=== PATIENT | female | born 2000 | race Caucasian/White ===

== ENCOUNTER 2019-10-11 10:39 | Emergency (ER) | payer BC, OTHER ==
[~2019-10-11] VITALS: Ht 165 cm; Wt 60.0 kg
[~2019-10-11 10:39] MED LIST: [UNRECOGNIZED DRUG - OTHER]
--- OUTSIDE RECORDS SUMMARY | 2019-10-11 10:44 | XMS REPORT ---
Author Author Michaela COOPER [facility] Address [address] [place] [address] Care Team Providers Care Planning Specialist Name Role Phone RON COOPER Unavailable PROBLEMS Type Condition ICD9-CM Code [id number] Code Onset Dates Condition S tatus SNOMED Code Problem Menometrorrhagia N92.1 Active 314 284289 Problem Slow transit constipation K59.01 Acti ve 83353719 Problem Abdominal pain, unspecified site 789.00 Active 51643729 Problem Acute upper respiratory infections of unspecified site 465.9 Active 65860786 Problem Intestinal infection due to other organism, NEC 008.8 Active [id number] ALLERGIES No Known Allergies ENCOUNTERS Encounter Location Date Diagnosis [facility] [address] [id number] [address] [place] [address] Aug, Friction injury to skin T14. 8XXA and Pressure injury of skin of both feet L89.899 [facility] [id number] [place] [id number] Aug, [facility] [address] [place] [address] Aug, Pressure injury of skin of b oth feet L89.899 and Friction injury to skin T14.8XXA [facility] [place] [address] [id number] [address] [place] [address] July, Encounter for Depo-Provera c ontraception Z30.42 [facility] [address] [id number] [address] [place] [address] May, Sore throat J02.9 and Viral upper respiratory tract infection J06.9 [facility] [place] [address] [id number] [address] [place] [address] 14 May, 2018 Encounter for initial prescr iption of contraceptives, unspecified contraceptive Z30.019 ; Contraception management Z30.9 ; Encounter for Depo- Provera contraception Z30.42 and Contraceptive education Z30.09 [facility] [address] [id number] [address] [place] [address] 12 May, 2018 Generalized abdominal pain R 10.84 and Slow transit constipation K59.01 [facility] [address] [address] Feb, Sore throat J02.9 ; Congesti on of nasal sinus R09.81 and Acute nasopharyngitis J00 [facility] [address] [address] Jan, Acute nasopharyngitis [address] [place] [address] [address] 16 May, 2017 control counseling Z30 .09 ; Menometrorrhagia N92.1 and Initiation of oral contraception Z30.011 [facility] [place] [address] [address] 07 Dec, 2016 Infectious otitis externa H6 0.399 [facility] [place] [address] [address] July, Acute upper respiratory infe ction J06.9 [facility] [place] [address] [address] July, [place] [address] [address] Jun, [place] [address] [address] Jun, [place] [address] [address] Mar, [place] [address] [address] Mar, [facility] [place] [address] [id number] [address] [place] [address] Jan, [facility] [place] [address] [id number] [address] [place] [address] Jan, [facility] [place] [address] [id number] [address] [place] [address] Jan, [facility] [place] [address] [id number] [address] [place] [phone] Jan, [facility] [place] [address] [id number] [address] [place] [phone] Apr, [facility] [place] [address] [id number] [address] [place] [phone] Apr, [facility] [place] [address] [facility] [id number] [address] [place] [phone] Feb, IMMUNIZATIONS No Known Immunizations SOCIAL HISTORY Never Assessed REASON FOR VISIT cough et congestion for the past week. second visit to the [facility] in 4 days. andrew nair PLAN OF CARE Activity Details Follow Up if not improving or with pcp for regular fu Reason: VITAL SIGNS Height 64 in 2018-06-01 Weight 114.2 lbs 2018-06-01 Temperature 98.6 degrees Fahrenheit 2018-06-01 Heart Rate 76 bpm 2018-06-01 Respiratory Rate 20 2018-06-01 BMI 19.60 kg/m2 2018-06-01 Blood pressure systolic 104 mmHg 2018-06-01 Blood pressure diastolic 62 mmHg 2018-06-01 MEDICATIONS Medication Instructions Dosage Frequency Start Date End Date Duration S tatus Depo-Provera 150 MG/ML Intramuscular [id number] 1 ml May, 90 days Active RESULTS Name Result Date Reference Range MONO TEST (IN HOUSE) 2018-06-01 RESULTS negative Control + Lot # [id number] Exp date 2019 STREP A (IN HOUSE) 2018-06-01 STREP A negative Control + Lot # [id number] Exp date 2018 09 31 PROCEDURES Procedure Date Ordered Result Body Site HETEROPHILE ANTIBODIES June 01, 2018 STREP A ASSAY W/OPTIC June 01, 2018 INSTRUCTIONS MEDICATIONS ADMINISTERED No Known Medications MEDICAL (GENERAL) HISTORY Type Description Date Surgical History bladder stretched when younger
--- OUTSIDE RECORDS SUMMARY | 2019-10-11 10:44 | XMS REPORT ---
Author Author Michaela JACK Organization [facility] [place] Address [address] [place] [address] Care Team Providers Care Oil Well Engineer Name Role Phone KAREEN JACK Unavailable PROBLEMS Type Condition ICD9-CM Code [id number] Code Onset Dates Condition S tatus SNOMED Code Problem Menometrorrhagia N92.1 Active 314 665101 Problem Slow transit constipation K59.01 Acti ve 45391742 Problem Abdominal pain, unspecified site 789.00 Active 77361831 Problem Acute upper respiratory infections of unspecified site 465.9 Active 66719748 Problem Intestinal infection due to other organism, NEC 008.8 Active 81441878 ALLERGIES No Information ENCOUNTERS Encounter Location Date Diagnosis [facility] [address] [id number] [address] [place] [address] Aug, Friction injury to skin T14. 8XXA and Pressure injury of skin of both feet L89.899 [facility] [address] [id number] [place] [id number] Aug, [facility] [address] [id number] [address] [place] [address] Aug, Pressure injury of skin of b oth feet L89.899 and Friction injury to skin T14.8XXA [facility] [place] [address] [place], [place] [id number] [address] [place] [phone] July, Encounter for Depo-Provera c ontraception Z30.42 [facility] [address] [id number] [address] [place] [address] 16 May, 2018 Sore throat J02.9 and Viral upper respiratory tract infection J06.9 [facility] [place] [address] [id number] [address] [place] [address] 14 May, 2018 Encounter for initial prescr iption of contraceptives, unspecified contraceptive Z30.019 ; Contraception management Z30.9 ; Encounter for Depo- Provera contraception Z30.42 and Contraceptive education Z30.09 [facility] [address] [address] 12 May, 2018 Generalized abdominal pain R 10.84 and Slow transit constipation K59.01 [facility] [address] [address] Feb, Sore throat J02.9 ; Congesti on of nasal sinus R09.81 and Acute nasopharyngitis J00 [facility] [address] [address] 10 Jan, 2018 Acute nasopharyngitis [address]00 [place] [address] [address] 16 May, 2017 control counseling Z30 .09 ; Menometrorrhagia N92.1 and Initiation of oral contraception Z30.011 [facility] [place] [address] [address] 07 Dec, 2016 Infectious otitis externa H6 0.399 [facility] [place] [address] [address] 06 Jul, 2016 Acute upper respiratory infe ction J06.9 [facility] [place] [address] [address] July, [place] [address] [address] Jun, [place] [address] [address] Jun, [place] [address] [address] Mar, [place] [address] [address] Mar, [facility] [place] [address] [id number] [address] [place] [phone] Jan, [facility] [place] [address] [id number] [address] [place] [phone] Jan, [facility] [place] [address] [id number] [address] [place] [phone] Jan, [facility] [place] [address] [id number] [address] [place] [phone] Jan, [facility] [place] [address] [id number] [address] [place] [phone] Apr, [facility] [place] [address] [id number] [address] [place] [phone] Apr, [facility] [place] [address] [facility] [id number] [address] [place] [phone] Feb, IMMUNIZATIONS No Known Immunizations SOCIAL HISTORY Never Assessed REASON FOR VISIT PLAN OF CARE VITAL SIGNS Height 64 in 2014-04-04 Weight 116 lbs 2014-04-04 Temperature 98.6 degrees Fahrenheit 2014-04-04 Heart Rate 72 bpm 2014-04-04 Respiratory Rate 20 2014-04-04 Blood pressure systolic 116 mmHg 2014-04-04 Blood pressure diastolic 78 mmHg 2014-04-04 MEDICATIONS No Known Medications RESULTS No Results PROCEDURES Procedure Date Ordered Result Body Site HETEROPHILE ANTIBODIES Apr 04, 2014 INSTRUCTIONS MEDICATIONS ADMINISTERED No Known Medications MEDICAL (GENERAL) HISTORY Type Description Date Surgical History bladder stretched when younger
--- OUTSIDE RECORDS SUMMARY | 2019-10-11 10:44 | XMS REPORT ---
Author Author Michaela CONWAY Organization [facility] [place] Address [address] [place] [address] Care Team Providers Care Auriculotherapist Name Role Phone GLADYS CONWAY Unavailable PROBLEMS Type Condition ICD9-CM Code SJJ26-AE Code Onset Dates Condition S tatus SNOMED Code Problem Intestinal infection due to other organism, NEC 008.8 Active 94879469 Problem Acute upper respiratory infections of unspecified site 465.9 Active 62054725 Problem Abdominal pain, unspecified site 789.00 Active 35369977 ALLERGIES No Known Allergies SOCIAL HISTORY Never Assessed PLAN OF CARE Activity Details Follow Up prn Reason: VITAL SIGNS Weight 116 lbs 2016-07-22 Temperature 97.9 degrees Fahrenheit 2016-07-22 Heart Rate 86 bpm 2016-07-22 Respiratory Rate 18 2016-07-22 Blood pressure systolic 112 mmHg 2016-07-22 Blood pressure diastolic 76 mmHg 2016-07-22 MEDICATIONS Medication Instructions Dosage Frequency Start Date End Date Duration S liz Azithromycin 250 MG Orally Once a day 2 tablets on the fi rst day, then 1 tablet daily for 4 days 24h July, July, 5 day(s) Active RESULTS No Results PROCEDURES No Known procedures IMMUNIZATIONS No Known Immunizations
--- OUTSIDE RECORDS SUMMARY | 2019-10-11 10:44 | XMS REPORT ---
Author Author Michaela FARRIS [facility] Organization [facility] Address [address] [place] [address] Care Team Providers Care Fashion Designer Name Role Phone LIBORIO ROMEROMICHI Unavailable PROBLEMS Type Condition ICD9-CM Code [id number] Code Onset Dates Condition S tatus SNOMED Code Problem Menometrorrhagia N92.1 Active 314 486308 Problem Slow transit constipation K59.01 Acti ve 05755111 Problem Abdominal pain, unspecified site 789.00 Active 70238178 Problem Acute upper respiratory infections of unspecified site 465.9 Active 73134461 Problem Intestinal infection due to other organism, NEC 008.8 Active 26450750 ALLERGIES No Information ENCOUNTERS Encounter Location Date Diagnosis [facility] [address] [id number] [address] [place] [address] Apr, Influenza-like illness R69 [facility] [address] [id number] [address] [place] [address] Apr, Influenza-like illness R69 [facility] [address] [place] [id number] [address] [place] [address] Aug, Friction injury to skin T14. 8XXA and Pressure injury of skin of both feet L89.899 [facility] [address] [facility] [place] [id number] Aug, [facility] [address] [id number] [address] [place] [address] Aug, Pressure injury of skin of b oth feet L89.899 and Friction injury to skin T14.8XXA [facility] [address] [facility] [place] [address] July, Encounter for Depo-Provera contraception Z30.42 [facility] [address] [id number] [address] [place] [address] 16 May, 2018 Sore throat J02.9 and Viral upper respiratory tract infection J06.9 [facility] [address] [id number] [place] [address] 14 May, 2018 Encounter for initial prescription of co ntraceptives, unspecified contraceptive Z30.019 ; Contraception management Z30.9 ; Encounter for Depo- Provera contraception Z30.42 and Contraceptive education Z30.09 [facility] [place] [address] [address] 12 May, 2018 Generalized abdominal pain R 10.84 and Slow transit constipation K59.01 [facility] [address] [address] 28 Feb, 2018 Sore throat J02.9 ; Congesti on of nasal sinus R09.81 and Acute nasopharyngitis J00 [facility] [place] [address] [address] 10 Jan, 2018 Acute nasopharyngitis J00 [place] [address] [address] 16 May, 2017 control counseling Z30.09 ; Menome trorrhagia N92.1 and Initiation of oral contraception Z30.011 [facility] [address] [address] 07 Dec, 2016 Infectious otitis externa H6 0.399 [facility] [address] [address] July, Acute upper respiratory infe ction J06.9 [facility] [address] [address] 05 Jul, 2016 [facility] [address] [place] [id number] [place] [address] 14 Jun, 2014 [place] [address] [address] Jun, [facility] [address] [facility] [place] [address] Mar, [facility] [address] [id number] [place] [address] Mar, [facility] [address] [facility] [place] [address] Jan, [facility] [id number] [place] [address] Jan, [facility] [address] [id number] [place] [address] Jan, [facility] [address] [id number] [place] [address] Jan, [facility] [address] [id number] [place] [address] Apr, [facility] [address] [id number] [place] [address] Apr, [facility] [address] [id number] [place] [address] Feb, IMMUNIZATIONS No Known Immunizations SOCIAL HISTORY Never Assessed REASON FOR VISIT PLAN OF CARE VITAL SIGNS Weight 120.7 lbs 2013-05-08 Temperature 98.1 degrees Fahrenheit 2013-05-08 Heart Rate 88 bpm 2013-05-08 Respiratory Rate 16 2013-05-08 Blood pressure systolic 118 mmHg 2013-05-08 Blood pressure diastolic 60 mmHg 2013-05-08 MEDICATIONS No Known Medications RESULTS No Results PROCEDURES No Known procedures INSTRUCTIONS MEDICATIONS ADMINISTERED No Known Medications MEDICAL (GENERAL) HISTORY Type Description Date Surgical History bladder stretched when younger
--- OUTSIDE RECORDS SUMMARY | 2019-10-11 10:44 | XMS REPORT ---
Author Author Michaela Torres Doctor Organization [facility] Address Unknown Phone Unavailable Care Team Providers Care Corporate Tax Manager Name Role Phone Migration, Doctor Unavailable Unavailable PROBLEMS Type Condition ICD9-CM Code [id number] Code Onset Dates Condition S tatus SNOMED Code Problem Menometrorrhagia N92.1 Active 314 714608 Problem Slow transit constipation K59.01 Acti ve 75811026 Problem Abdominal pain, unspecified site 789.00 Active 68198674 Problem Acute upper respiratory infections of unspecified site 465.9 Active 28552898 Problem Intestinal infection due to other organism, NEC 008.8 Active 73924315 ALLERGIES No Information ENCOUNTERS Encounter Location Date Diagnosis [facility] [address] [place] [address] [id number] [address] [place] [address] 16 May, 2018 Sore throat J02.9 and Viral upper respiratory tract infection J06.9 [facility] [place] [address] [place] [address] [id number] [address] [place] [address] 14 May, 2018 Encounter for initial prescr iption of contraceptives, unspecified contraceptive Z30.019 ; Contraception management Z30.9 ; Encounter for Depo- Provera contraception Z30.42 and Contraceptive education Z30.09 [facility] [address] [place] [address] 12 May, 2018 Generalized abdominal pain R 10.84 and Slow transit constipation K59.01 [facility] [address] [place] [id number] [address] [place] [address] Feb, Sore throat J02.9 ; Congesti on of nasal sinus R09.81 and Acute nasopharyngitis J00 [facility] [address] [place] [id number] [address] [place] [address] 10 Jan, 2018 Acute nasopharyngitis J00 [facility] [place] [address] [place] [id number] [address] [place] [address] 16 May, 2017 control counseling Z30 .09 ; Menometrorrhagia N92.1 and Initiation of oral contraception Z30.011 [facility] [address] [id number] [address] [place] [address] 07 Dec, 2016 Infectious otitis externa H6 0.399 [facility] [address] [facility] [id number] [address] [place] [address] 06 Jul, 2016 Acute upper respiratory infe ction J06.9 [facility] [address] [id number] [address] [place] [address] July, [facility] [place] [address] [id number] [address] [place] [address] 14 Jun, 2014 [facility] [place] [address] [id number] [address] [place] [address] Jun, [facility] [place] [address] [facility] [id number] [address] [place] [address] Mar, [facility] [place] [address] [id number] [address] [place] [address] Mar, [facility] [place] [address] [facility] [id number] [address] [place] [address] Jan, [facility] [place] [address] [facility] [id number] [address] [place] [address] Jan, [facility] [place] [address] [id number] [address] [place] [address] Jan, [facility] [place] [address] [id number] [address] [place] [address] Jan, [facility] [place] [address] [facility] [id number] [address] [place] [address] Apr, [facility] [place] [address] [id number] [address] [place] [address] Apr, [facility] [place] [address] [id number] [address] [place] [address] Feb, IMMUNIZATIONS No Known Immunizations SOCIAL HISTORY Never Assessed REASON FOR VISIT [facility] PLAN OF CARE VITAL SIGNS MEDICATIONS No Known Medications RESULTS No Results PROCEDURES No Known procedures INSTRUCTIONS MEDICATIONS ADMINISTERED No Known Medications MEDICAL (GENERAL) HISTORY Type Description Date Surgical History bladder stretched when younger
--- OUTSIDE RECORDS SUMMARY | 2019-10-11 10:44 | XMS REPORT ---
Author Author Michaela Regalado [facility] Address [address] [place] [address] Care Team Providers Care Wire Photo Operator Name Role Phone rajivCHRISDASH GUSTAVO Unavailable PROBLEMS Type Condition ICD9-CM Code BID25-FQ Code Onset Dates Condition S tatus SNOMED Code Problem Menometrorrhagia N92.1 Active 314 517930 Problem Intestinal infection due to other organism, NEC 008.8 Active 75796874 Problem Acute upper respiratory infections of unspecified site 465.9 Active 34980884 Problem Abdominal pain, unspecified site 789.00 Active 93083749 ALLERGIES No Known Allergies ENCOUNTERS Encounter Location Date Diagnosis [facility] [address] [place] [phone] May, control counseling Z30 .09 ; Menometrorrhagia N92.1 and Initiation of oral contraception Z30.011 [facility] [address] [place] [address] Dec, Infectious otitis externa H6 0.399 [facility] [address] [facility] [id number] [address] [place] [phone] July, Acute upper respiratory infe ction J06.9 [facility] [address] [facility] [id number] [address] [place] [phone] July, [facility] [address] [place] [id number] [address] [place] [phone] Jun, [facility] [address] [place] [id number] [address] [place] [phone] Jun, [facility] [address] [facility] [id number] [address] [place] [phone] Mar, [place] [address] [id number] [address] [place] [phone] Mar, [facility] [address] [id number] [address] [place] [phone] Jan, [facility] [address] [id number] [address] [place] [phone] Jan, [facility] [address] [id number] [address] [place] [phone] Jan, [facility] [address] [id number] [address] [place] [phone] Jan, [facility] [address] [id number] [address] [place] [phone] Apr, [facility] [address] [id number] [address] [place] [phone] Apr, [facility] [address] [id number] [address] [place] [phone] Feb, IMMUNIZATIONS No Known Immunizations SOCIAL HISTORY Never Assessed REASON FOR VISIT Right ear pain x3-4 days [facility] PCP None PLAN OF CARE Activity Details Follow Up prn Reason: VITAL SIGNS Weight 115.8 lbs 2016-12-23 Temperature 98.3 degrees Fahrenheit 2016-12-23 Heart Rate 60 bpm 2016-12-23 Respiratory Rate 20 2016-12-23 Blood pressure systolic 120 mmHg 2016-12-23 Blood pressure diastolic 68 mmHg 2016-12-23 MEDICATIONS Medication Instructions Dosage Frequency Start Date End Date Duration S tatus Cortisporin 3.5-85077-5 Otic Three times a day 4 drops into affecte d ear 8h Dec, 7 days Active RESULTS No Results PROCEDURES No Known procedures INSTRUCTIONS MEDICATIONS ADMINISTERED No Known Medications MEDICAL (GENERAL) HISTORY Type Description Date Surgical History bladder stretched when younger
--- OUTSIDE RECORDS SUMMARY | 2019-10-11 10:44 | XMS REPORT ---
Author Author Michaela AGRAWAL Organization [facility] Address [address] [place] [address] Care Team Providers Care Bending Shed Worker Name Role Phone CHIRAG AGRAWAL Unavailable PROBLEMS Type Condition ICD9-CM Code ZGE15-XE Code Onset Dates Condition S tatus SNOMED Code Problem Menometrorrhagia N92.1 Active 314 285352 Problem Slow transit constipation K59.01 Acti ve 84178952 Problem Abdominal pain, unspecified site 789.00 Active 67844816 Problem Acute upper respiratory infections of unspecified site 465.9 Active 26576306 Problem Intestinal infection due to other organism, NEC 008.8 Active 81198770 ALLERGIES No Information ENCOUNTERS Encounter Location Date Diagnosis [facility] [address] [place] [id number] [address] [place] [phone] Aug, Friction injury to skin T14. 8XXA and Pressure injury of skin of both feet L89.899 [facility] [id number] [place] [id number] Aug, [facility] WALK IN [facility] [address] [id number] [address] [place] [phone] Aug, Pressure injury of skin of b oth feet L89.899 and Friction injury to skin T14.8XXA [facility] [address] [place] [id number] [address] [place] [phone] July, Encounter for Depo-Provera c ontraception Z30.42 [facility] [address] [place] [id number] [address] [place] [phone] 16 May, 2018 Sore throat J02.9 and Viral upper respiratory tract infection J06.9 [facility] [address] [place] [id number] [address] [place] [phone] May, Encounter for initial prescr iption of contraceptives, unspecified contraceptive Z30.019 ; Contraception management Z30.9 ; Encounter for Depo- Provera contraception Z30.42 and Contraceptive education Z30.09 [facility] [address] [address] 12 May, 2018 Generalized abdominal pain R 10.84 and Slow transit constipation K59.01 [facility] IN [facility]ARE [address] [address] 28 Feb, 2018 Sore throat J02.9 ; Congesti on of nasal sinus R09.81 and Acute nasopharyngitis J00 [facility] WALK IN CARE [facility] [address] [address] 10 Jan, 2018 Acute nasopharyngitis J00 [place] [address] [address] 16 May, 2017 control counseling Z30 .09 ; Menometrorrhagia N92.1 and Initiation of oral contraception Z30.011 [facility] [address] [address] 07 Dec, 2016 Infectious otitis externa H6 0.399 [facility] W[facility] IN [facility]ARE [facility] N [address] [address] 06 Jul, 2016 Acute upper respiratory infe ction J06.9 [facility] WALK IN [place] [address] [address] July, [facility] [address] [address] Jun, [place] [address] [address] Jun, [facility] [address] [address] Mar, [facility] [address] [address] Mar, [facility] [address] [id number] [address] [place] [address] Jan, [facility] [address] [id number] [address] [place] [address] Jan, [facility] [address] [id number] [address] [place] [phone] Jan, [facility] [address] [id number] [address] [place] [phone] Jan, [facility] [address] [id number] [address] [place] [address] Apr, [facility] [address] [id number] [address] [place] [phone] Apr, [facility] [address] [id number] [address] [place] [phone] Feb, IMMUNIZATIONS No Known Immunizations SOCIAL HISTORY Never Assessed REASON FOR VISIT PLAN OF CARE VITAL SIGNS Height 64 in 2014-01-27 Weight 115.12 lbs 2014-01-27 Temperature 98.4 degrees Fahrenheit 2014-01-27 Heart Rate 77 bpm 2014-01-27 Respiratory Rate 18 2014-01-27 Blood pressure systolic 132 mmHg 2014-01-27 Blood pressure diastolic 78 mmHg 2014-01-27 MEDICATIONS No Known Medications RESULTS No Results PROCEDURES Procedure Date Ordered Result Body Site URINE CULTURE/COLONY COUNT Jan 27, 2014 HETEROPHILE ANTIBODIES Jan 27, 2014 URINE TEST Jan 27, 2014 URINALYSIS, AUTO, W/O SCOPE Jan 27, 2014 INSTRUCTIONS MEDICATIONS ADMINISTERED No Known Medications MEDICAL (GENERAL) HISTORY Type Description Date Surgical History bladder stretched when younger
--- OUTSIDE RECORDS SUMMARY | 2019-10-11 10:44 | XMS REPORT | Continuity of Care Document ---
Author Organization Unknown Address Unknown Phone Unavailable Allergies Active Description Code Type Severity Reaction Onset Reported/Identified Relationship to Patient Clinical Status Yes No Known Drug Allergies [id number] Drug Allergy Unknown N/A 08/14/2008 Medications There is no data. Problems Date Dx Coded Attending Type Code Diagnosis Diagnosed By 12/10/2008 MICHI BRADLEY APRN N 477.9 ALLERGIC RHINITIS CAUSE UNSPECIFIED 12/10/2008 MICHI BRADLEY APRN N 786.2 COUGH 12/10/2008 TANJA VELÁZQUEZ CHIRAG 477. 9 ALLERGIC RHINITIS CAUSE UNSPECIFIED 12/10/2008 TANJA VELÁZQUEZ, CHIRAG 786. 2 COUGH 12/10/2008 GARRET JACK APRNA S 477.9 ALLERGIC RHINITIS CAUSE UNSPECIFIED 12/10/2008 MARCIE LOBO KAREEN S 786.2 COUGH 03/10/2011 MICHI BRADLEY APRN N 466.0 BRONCHITIS, ACUTE 03/10/2011 MICHI BRADLEY APRN N 780.79 MALAISE AND FATIGUE 03/10/2011 TANJA VELÁZQUEZ, CHIRAG 466. 0 BRONCHITIS, ACUTE 03/10/2011 TANJA VELÁZQUEZ, CHIRAG 780. 79 MALAISE AND FATIGUE 03/10/2011 JOSSE JACK APRNNDA S 466.0 BRONCHITIS, ACUTE 03/10/2011 MARCIE LOBO KAREEN S 780.79 MALAISE AND FATIGUE 12/12/2013 JEISON FAITH Ot 789.00 ABDOMINAL PAIN, UNSPECIFIED SITE 01/27/2014 TANJA VELÁZQUEZ, CHIRAG 008. 8 GASTROENTERITIS, VIRAL 01/27/2014 TANJA VELÁZQUEZ, CHIRAG 789. 00 ABDOMINAL PAIN UNSPECIFIED SITE 01/27/2014 KAREEN JACK APRN S 008.8 GASTROENTERITIS, VIRAL 01/27/2014 GARRET JACK APRNA S 789.00 ABDOMINAL PAIN UNSPECIFIED SITE 04/04/2014 KAREEN JACK APRN 465.9 UPPER RESPIRATORY INFECTION Procedures Code Description [place] [address] MONO TEST (IN-HOUSE) 01/27/2014 95171 UA W / CULTURE IF INDICATED 01/27/2014 38897 PREG MICHI TEST, URINE (IN- HOUSE) 01/27/2014 03566 CULT URE URINE 01/29/2014 10980 MONO TEST (IN-HOUSE) 04/04/2014 Results There is no data. Encounters ACCT No. Visit Date/Time Discharge Status Pt. Type Provider Facility Loc./Unit Complaint [id number] 10/10/2019 07:30:00 ACT Outpatient SUSAN MONTANA APRN [facility] [id number] 07/30/2015 15:44:02 ACT Unknown [id number] 04/04/2014 09:58:00 04/04/2014 23:59: 59 CLS Outpatient KAREEN JACK APRN [id number] 01/27/2014 16:23:00 01/27/2014 23:59: 59 CLS Outpatient TANJA VELÁZQUEZ, CHIRAG [id number] 05/08/2013 13:53:00 05/08/2013 23:59: 59 CLS Outpatient MICHI BRADLYE APRN N [id number] 12/12/2013 17:49:00 014 20:52:00 DIS Emergency JEISON FAITH [facility] ER UPPER LEFT SIDE PAIN [id number] 07/25/2012 18:00:00 013 23:59:59 CLS Outpatient
--- OUTSIDE RECORDS SUMMARY | 2019-10-11 10:44 | XMS REPORT ---
Author Author Michaela Torres Doctor Organization [facility] Address Unknown Phone Unavailable Care Team Providers Care Engine Monitor Name Role Phone Migration, Doctor Unavailable Unavailable PROBLEMS Type Condition ICD9-CM Code [id number] Code Onset Dates Condition S tatus SNOMED Code Problem Menometrorrhagia N92.1 Active 314 898725 Problem Slow transit constipation K59.01 Acti ve 76455675 Problem Abdominal pain, unspecified site 789.00 Active 95803963 Problem Acute upper respiratory infections of unspecified site 465.9 Active 87641088 Problem Intestinal infection due to other organism, NEC 008.8 Active 84480422 ALLERGIES No Information ENCOUNTERS Encounter Location Date Diagnosis [facility] IN [facility] [address] [place] [id number] [address] [place] [phone] 16 May, 2018 Sore throat J02.9 and Viral upper respiratory tract infection J06.9 [facility] [address] [place] [address] [id number] [address] [place] [phone] 14 May, 2018 Encounter for initial prescr iption of contraceptives, unspecified contraceptive Z30.019 ; Contraception management Z30.9 ; Encounter for Depo- Provera contraception Z30.42 and Contraceptive education Z30.09 [facility] [address] [place] [address] 12 May, 2018 Generalized abdominal pain R 10.84 and Slow transit constipation K59.01 [facility] [address] [place] [id number] [address] [place] [phone] Feb, Sore throat J02.9 ; Congesti on of nasal sinus R09.81 and Acute nasopharyngitis J00 [facility] [address] [place] [address] [id number] [address] [place] [phone] 10 Jan, 2018 Acute nasopharyngitis J00 [facility] [address] [place] [address] [id number] [address] [place] [phone] 16 May, 2017 control counseling Z30 .09 ; Menometrorrhagia N92.1 and Initiation of oral contraception Z30.011 [facility] [address] [id number] [address] [place] [phone] 07 Dec, 2016 Infectious otitis externa H6 0.399 [facility] [address] [facility] [id number] [address] [place] [phone] 06 Jul, 2016 Acute upper respiratory infe ction J06.9 [facility] [address] [id number] [address] [place] [phone] July, [facility] [address] [id number] [address] [place] [phone] 14 Jun, 2014 [facility] [address] [id number] [address] [place] [phone] Jun, [facility] [address] [facility] [id number] [address] [place] [phone] Mar, [facility] [address] [id number] [address] [place] [phone] Mar, [facility] [address] [facility] [id number] [address] [place] [phone] Jan, [facility] [address] [facility] [id number] [address] [place] [phone] Jan, [facility] [address] [id number] [address] [place] [phone] Jan, [facility] [address] [id number] [address] [place] [phone] Jan, [facility] [address] [facility] [id number] [address] [place] [phone] Apr, [facility] [address] [id number] [address] [place] [phone] Apr, [facility] [address] [id number] [address] [place] [phone] Feb, IMMUNIZATIONS No Known Immunizations SOCIAL HISTORY Never Assessed REASON FOR VISIT EMR-[facility] PLAN OF CARE VITAL SIGNS MEDICATIONS No Known Medications RESULTS No Results PROCEDURES No Known procedures INSTRUCTIONS MEDICATIONS ADMINISTERED No Known Medications MEDICAL (GENERAL) HISTORY Type Description Date Surgical History bladder stretched when younger
--- OUTSIDE RECORDS SUMMARY | 2019-10-11 10:44 | XMS REPORT ---
Author Author Michaela ORLANDO Organization [facility] Address [address] [place] [address] Care Team Providers Care Area Sales Manager Name Role Phone PAT ORLANDO Unavailable PROBLEMS Type Condition ICD9-CM Code RTF13-GL Code Onset Dates Condition S tatus SNOMED Code Problem Menometrorrhagia N92.1 Active 314 076425 Problem Slow transit constipation K59.01 Acti ve 34707400 Problem Abdominal pain, unspecified site 789.00 Active 33896955 Problem Acute upper respiratory infections of unspecified site 465.9 Active 59936062 Problem Intestinal infection due to other organism, NEC 008.8 Active 71037146 ALLERGIES No Known Allergies ENCOUNTERS Encounter Location Date Diagnosis [facility] TO WALK IN [facility]ARE [address] [place] [address] [id number] [address] [place] [phone] Aug, Friction injury to skin T14. 8XXA and Pressure injury of skin of both feet L89.899 [facility] [address] [id number] [place] [id number] Aug, [facility] WALK IN [facility] [address] [place] [id number] [address] [place] [phone] Aug, Pressure injury of skin of b oth feet L89.899 and Friction injury to skin T14.8XXA [facility] [address] [place] [id number] [address] [place] [phone] July, Encounter for Depo-Provera c ontraception Z30.42 [facility] WALK IN [facility]ARE [address] [place] [id number] [address] [place] [phone] 16 May, 2018 Sore throat J02.9 and Viral upper respiratory tract infection J06.9 [facility] [address] [place] [id number] [address] [place] [address] May, Encounter for initial prescr iption of contraceptives, unspecified contraceptive Z30.019 ; Contraception management Z30.9 ; Encounter for Depo- Provera contraception Z30.42 and Contraceptive education Z30.09 [facility] WALK IN CARE [address] [address] 12 May, 2018 Generalized abdominal pain R 10.84 and Slow transit constipation K59.01 [facility] IN [facility]ARE [address] [address] 28 Feb, 2018 Sore throat J02.9 ; Congesti on of nasal sinus R09.81 and Acute nasopharyngitis J00 [facility] WALK IN [facility]ARE [facility] N [address] [address] 10 Jan, 2018 Acute nasopharyngitis J00 [place] [address] [address] 16 May, 2017 control counseling Z30 .09 ; Menometrorrhagia N92.1 and Initiation of oral contraception Z30.011 [facility] [address] [address] 07 Dec, 2016 Infectious otitis externa H6 0.399 [facility] WALK IN [facility]ARE [facility] N [address] [address] 06 Jul, 2016 Acute upper respiratory infe ction J06.9 [facility] WALK IN [place] [address] [phone] July, [facility] [address] [address] Jun, [place] [address] [address] Jun, [facility] [address] [address] Mar, [facility] [address] [address] Mar, [facility] [address] [id number] [address] [place] [phone] Jan, [facility] [address] [id number] [address] [place] [phone] Jan, [facility] [address] [id number] [address] [place] [phone] Jan, [facility] [address] [facility] [id number] [address] [place] [phone] Jan, [facility] [address] [id number] [address] [place] [phone] Apr, [facility] [address] [facility] [id number] [address] [place] [phone] Apr, [facility] [address] [facility] [id number] [address] [place] [phone] Feb, IMMUNIZATIONS No Known Immunizations SOCIAL HISTORY Never Assessed REASON FOR VISIT for the past 2 weeks...pt has had N/D off et on. also reports cough et fatigue. [email or web address] PLAN OF CARE Activity Details Follow Up Follow up prn Reason: VITAL SIGNS Height 64 in 2018-05-28 Weight 115.8 lbs 2018-05-28 Temperature 97.8 degrees Fahrenheit 2018-05-28 Heart Rate 82 bpm 2018-05-28 Respiratory Rate 20 2018-05-28 BMI 19.87 kg/m2 2018-05-28 Blood pressure systolic 120 mmHg 2018-05-28 Blood pressure diastolic 70 mmHg 2018-05-28 MEDICATIONS Medication Instructions Dosage Frequency Start Date End Date Duration S tatus Polyethylene Glycol 3350 - Orally Once a day 1 capfull mix ed with 8 ounces of water or juice 24h May, 30 day(s) Active RESULTS Name Result Date Reference Range TEST, URINE (IN HOUSE) RESULTS negative Lot # [id number] Control + Exp date 2019-09-16 Xray : Abdomen 2v (Upright and KUB) - IN HOUSE 2 PROCEDURES Procedure Date Ordered Result Body Site X-RAY EXAM ABDOMEN 2 VIEWS May 28, 2018 URINE TEST May 28, 2018 INSTRUCTIONS MEDICATIONS ADMINISTERED No Known Medications MEDICAL (GENERAL) HISTORY Type Description Date Surgical History bladder stretched when younger
--- OUTSIDE RECORDS SUMMARY | 2019-10-11 10:44 | XMS REPORT ---
Author Author Michaela WILDER Organization [facility] Address [address] [place] [address] Care Team Providers Care Vice President Residential Solar Sales Name Role Phone WILDERYAEL Unavailable PROBLEMS Type Condition ICD9-CM Code [id number] Code Onset Dates Condition S tatus SNOMED Code Problem Menometrorrhagia N92.1 Active 314 580067 Problem Intestinal infection due to other organism, NEC 008.8 Active 75175855 Problem Acute upper respiratory infections of unspecified site 465.9 Active 69870913 Problem Abdominal pain, unspecified site 789.00 Active 96959195 ALLERGIES No Known Allergies ENCOUNTERS Encounter Location Date Diagnosis [facility] [address] [place] [id number] [address] [place] [phone] 10 Jan, 2018 Acute nasopharyngitis J00 [facility] [address] [address] 16 May, 2017 control counseling Z30 .09 ; Menometrorrhagia N92.1 and Initiation of oral contraception Z30.011 [facility] [address] [place] [address] [id number] [address] [place] [phone] Dec, Infectious otitis externa H6 0.399 [facility] [address] [place] [id number] [address] [place] [phone] July, Acute upper respiratory infe ction J06.9 [facility] [address] [phone] July, [facility] [address] [place] [id number] [address] [place] [phone] 14 Jun, 2014 [facility] [address] [address] Jun, [facility] [address] [id number] [address] [place] [phone] Mar, [facility] [address] [id number] [address] [place] [phone] Mar, [facility] [address] [id number] [address] [place] [phone] Jan, [facility] [address] [id number] [address] [place] [phone] Jan, [facility] [address] [id number] [address] [place] [phone] Jan, [facility] [address] [id number] [address] [place] [phone] Jan, [facility] [address] [id number] [address] [place] [phone] Apr, [facility] [address] [id number] [address] [place] [phone] Apr, [facility] [address] [id number] [address] [place] [phone] Feb, IMMUNIZATIONS No Known Immunizations SOCIAL HISTORY Never Assessed REASON FOR VISIT fever, cough, congestion for the last 4 days. bulmaro, didnt actually take te mp at home...just thought she had one PLAN OF CARE Activity Details Follow Up prn Reason: VITAL SIGNS Height 64 in 2018-01-26 Weight 113.8 lbs 2018-01-26 Temperature 97.6 degrees Fahrenheit 2018-01-26 Heart Rate 80 bpm 2018-01-26 Respiratory Rate 20 2018-01-26 BMI 19.53 kg/m2 2018-01-26 Blood pressure systolic 104 mmHg 2018-01-26 Blood pressure diastolic 68 mmHg 2018-01-26 MEDICATIONS Medication Instructions Dosage Frequency Start Date End Date Duration S liz Apri 0.15-30 MG-MCG Orally Once a day 1 tablet 24h May, Active RESULTS No Results PROCEDURES No Known procedures INSTRUCTIONS MEDICATIONS ADMINISTERED No Known Medications MEDICAL (GENERAL) HISTORY Type Description Date Surgical History bladder stretched when younger
--- OUTSIDE RECORDS SUMMARY | 2019-10-11 10:44 | XMS REPORT ---
Author Author Michaela Torres Doctor Organization [facility] Address Unknown Phone Unavailable Care Team Providers Care Data Coordinator Name Role Phone Migration, Doctor Unavailable Unavailable PROBLEMS Type Condition ICD9-CM Code PPU88-AO Code Onset Dates Condition S tatus SNOMED Code Problem Menometrorrhagia N92.1 Active 314 328093 Problem Slow transit constipation K59.01 Acti ve 52537585 Problem Abdominal pain, unspecified site 789.00 Active 32378995 Problem Acute upper respiratory infections of unspecified site 465.9 Active 38104447 Problem Intestinal infection due to other organism, NEC 008.8 Active [id number] ALLERGIES No Information ENCOUNTERS Encounter Location Date Diagnosis [facility] [id number] [address] [place] [phone] 16 May, 2018 Sore throat J02.9 and Viral upper respiratory tract infection J06.9 [facility] [address] [id number] [address] [place] [phone] 14 May, 2018 Encounter for initial prescr iption of contraceptives, unspecified contraceptive Z30.019 ; Contraception management Z30.9 ; Encounter for Depo- Provera contraception Z30.42 and Contraceptive education Z30.[address] [facility] [id number] [place] [phone] 12 May, 2018 Generalized abdominal pain R 10.84 and Slow transit constipation K59.01 [facility] [address] [id number] [address] [place] [phone] Feb, Sore throat J02.9 ; Congesti on of nasal sinus R09.81 and Acute nasopharyngitis J00 [facility] [address] [id number] [address] [place] [phone] 10 Jan, [address] [facility] [address] [id number] [address] [place] [phone] 16 May, 2017 control counseling Z30 .09 ; Menometrorrhagia N92.1 and Initiation of oral contraception Z30.011 [facility] [address] [id number] [address] [place] [phone] 07 Dec, 2016 Infectious otitis externa H6 0.399 [facility] [address] [facility] [id number] [address] [place] [phone] 06 Jul, 2016 Acute upper respiratory infe ction J06.9 [facility] [address] [id number] [address] [place] [phone] July, [facility] [address] [id number] [address] [place] [phone] [address], [address] [facility] [address] [id number] [address] [place] [phone] Jun, [facility] [address] [facility] [id number] [address] [place] [phone] Mar, [facility] [address] [id number] [address] [place] [phone] Mar, [facility] [address] [facility] [id number] [address] [place] [phone] Jan, [facility] [address] [facility] [id number] [address] [place] [phone] Jan, [facility] [address] [id number] [address] [place] [phone] Jan, [facility] [address] [id number] [address] [place] [phone] Jan, [facility] [address] [facility] [id number] [address] [place] [phone] Apr, [facility] [address] [id number] [address] [place] [phone] Apr, [facility] [address] [id number] [address] [place] [phone] Feb, IMMUNIZATIONS No Known Immunizations SOCIAL HISTORY Never Assessed REASON FOR [place]ISIT [place] [place] VITAL SIGNS MEDICATIONS Medication Instructions Dosage Frequency Start Date End Date Duration S tatus Zantac 150 mg 1 tablet by Oral route 1 time per day fo r heartburn Jan, Active Flonase 50 mcg/actuation 1 sprays by Trever al route 2 times per day for 7 days in each nostril Apr, Active Zithromax Z-Chago 250 mg 2 tablet by Oral route 1 time per day for 1 days then take 1 tab daily on days 2-5 Apr, Active RESULTS No Results PROCEDURES No Known procedures INSTRUCTIONS MEDICATIONS ADMINISTERED No Known Medications MEDICAL (GENERAL) HISTORY Type Description Date Surgical History bladder stretched when younger
--- NOTE | 2019-10-11 11:24 | NUR ---
Pt to triage room at 1124 and sent back to waiting room.
--- NOTE | 2019-10-11 11:55 | ED General ---
General Stated Complaint: RASH ALL OVER Source of Information: Patient Exam Limitations: No Limitations History of Present Illness Date Seen by Provider: Oct 11, 2019 Time Seen by Provider: 11:53 Initial Comments To ER with rash all over. This is itching and burning. She awakened yesterday morning with a spider bite to the anterior neck. She has some lymphangitis associated with this. She went to urgent care and got put on doxycycline which she has had before without difficulty and a shot of steroids. She awakened this morning with diffuse itching rash. Timing/Duration: 1-2 Days Severity: Moderate Associated Systoms: Denies Symptoms Allergies and Home Medications Allergies Coded Allergies: No Known Drug Allergies (Verified , 08/14/08) Home Medications [Albuteral Tx] , ONCE, (Reported) Patient Home Medication List Home Medication List Reviewed: Yes Review of Systems Review of Systems Constitutional: see HPI EENTM: see HPI Respiratory: no symptoms reported Cardiovascular: no symptoms reported Genitourinary: no symptoms reported Musculoskeletal: no symptoms reported Skin: see HPI, rash Psychiatric/Neurological: No Symptoms Reported Past Ejryutp-Qfckjq-Fsaitu Hx Patient Social History Recent Foreign Travel: No Contact w/Someone Who Travel: No Past Medical History Asthma Physical Exam Vital Signs Vital Signs - First Documented 10/11/19 11:24 Temp 37.0 Pulse 71 Resp 20 B/P (MAP) 123/68 (86) Pulse Ox 100 O2 Delivery Room Air Capillary Refill : Height, Weight, BMI Height: 5'2" Weight: 116lbs. oz. 52.964262jp; BMI Method:Stated General Appearance: No Apparent Distress, WD/WN Eyes: Bilateral Eye Normal Inspection, Bilateral Eye PERRL, Bilateral Eye EOMI HEENT: PERRL/EOMI, TMs Normal, Normal ENT Inspection, Pharynx Normal, Other (no intraoral lesions) Respiratory: No Accessory Muscle Use, No Respiratory Distress Cardiovascular: Regular Rate, Rhythm, Normal Peripheral Pulses Gastrointestinal: Normal Bowel Sounds, Non Tender, Soft Extremity: Normal Capillary Refill, Normal Inspection Neurologic/Psychiatric: Alert, Oriented x3 Skin: Normal Color, Warm/Dry, Rash (diffuse morbilliform rash) Progress/Results/Core Measures Suspected Sepsis SIRS Temperature: Pulse: Respiratory Rate: Laboratory Tests 10/11/19 12:19: White Blood Count 7.1 Blood Pressure / Mean: Laboratory Tests 7/25/20 12:19: Creatinine 0.82, Platelet Count 196, Total Bilirubin 0.7 Results/Orders Lab Results Laboratory Tests Test 10/11/19 12:19 Range/Units White Blood Count 7.1 4.3-11.0 10^3/uL Red Blood Count 5.40 4.35-5.85 10^6/uL Hemoglobin 14.7 11.5-16.0 G/DL Hematocrit 43 35-52 % Mean Corpuscular Volume 80 80-99 FL Mean Corpuscular Hemoglobin 27 25-34 PG Mean Corpuscular Hemoglobin Concent 34 32-36 G/DL Red Cell Distribution Width 14.6 H 10.0-14.5 % Platelet Count 196 130-400 10^3/uL Mean Platelet Volume 11.8 H 7.4-10.4 FL Neutrophils (%) (Auto) 69 42-75 % Lymphocytes (%) (Auto) 18 12-44 % Monocytes (%) (Auto) 9 0-12 % Eosinophils (%) (Auto) 4 0-10 % Basophils (%) (Auto) 0 0-10 % Neutrophils # (Auto) 4.9 1.8-7.8 X 10^3 Lymphocytes # (Auto) 1.3 1.0-4.0 X 10^3 Monocytes # (Auto) 0.6 0.0-1.0 X 10^3 Eosinophils # (Auto) 0.3 0.0-0.3 10^3/uL Basophils # (Auto) 0.0 0.0-0.1 10^3/uL Sodium Level 141 135-145 MMOL/L Potassium Level 4.1 3.6-5.0 MMOL/L Chloride Level 110 H 98-107 MMOL/L Carbon Dioxide Level 22 21-32 MMOL/L Anion Gap 9 5-14 MMOL/L Blood Urea Nitrogen 11 7-18 MG/DL Creatinine 0.82 0.60-1.30 MG/DL Estimat Glomerular Filtration Rate > 60 BUN/Creatinine Ratio 13 Glucose Level 86 70-105 MG/DL Calcium Level 9.1 8.5-10.1 MG/DL Corrected Calcium 9.0 8.5-10.1 MG/DL Total Bilirubin 0.7 0.1-1.0 MG/DL Aspartate Amino Transf (AST/SGOT) 15 5-34 U/L Alanine Aminotransferase (ALT/SGPT) 15 0-55 U/L Alkaline Phosphatase 74 40-136 U/L Total Protein 6.8 6.4-8.2 GM/DL Albumin 4.1 3.2-4.5 GM/DL Serum Test, Qualitative NEGATIVE NEGATIVE My Orders Orders - LEXIE THAKUR APRN Diphenhydramine Injection (Benadryl Inje (10/11/19 12:00) Dexamethasone Injection (Decadron Inject (10/11/19 12:00) Hs C Reactive Protein (10/11/19 11:52) Erythrocyte Sedimentation Rate (10/11/19 11:52) Cbc With Automated Diff (10/11/19 11:52) Comprehensive Metabolic Panel (10/11/19 11:52) Hcg,Qualitative Serum (10/11/19 11:52) Medications Given in ED Current Medications Medications Dose Ordered Sig/Elizabeth Route Start Time Stop Time Status Last Admin Dose Admin Dexamethasone Sodium Phosphate 10 mg ONCE ONCE IM 10/11/19 12:00 10/11/19 12:01 DC 10/11/19 12:02 10 MG Diphenhydramine HCl 25 mg ONCE ONCE IM 10/11/19 12:00 10/11/19 12:01 DC 10/11/19 12:02 25 MG Vital Signs/I&O 10/11/19 11:24 Temp 37.0 Pulse 71 Resp 20 B/P (MAP) 123/68 (86) Pulse Ox 100 O2 Delivery Room Air Capillary Refill : Departure Impression Primary Impression: Loxoscelism Additional Impression: Toxic effect of venom of brown recluse spider Disposition: 01 HOME, SELF-CARE Condition: Stable Departure-Patient Inst. Decision time for Depature: 12:57 Referrals: NO,LOCAL PHYSICIAN (PCP/Family) Primary Care Physician Patient Instructions: Spider Bites Add. Discharge Instructions: 1. return to ER for any dark urine, severe muscle aches or any other concerns. Follow-up with your doctor next week. LEXIE THAKUR APRN Oct 11, 2019 11:55
[2019-10-11] MEDS ORDERED: diphenhydrAMINE 50 MG/ML INJ (BENADRYL) IM ONE (12:00)
[2019-10-11 12:29] LABS: BASOPHILS % (AUTO) 0 % (0-10); EOSINOPHILS # (AUTO) 0.3 10^3/uL (0.0-0.3); EOSINOPHILS % (AUTO) 4 % (0-10); HEMATOCRIT 43 % (35-52); HEMOGLOBIN 14.7 G/DL (11.5-16.0); LYMPHOCYTES # (AUTO) 1.3 X 10^3 (1.0-4.0); LYMPHOCYTES % (AUTO) 18 % (12-44); MEAN CORPUSCULAR HEMOGLOBIN 27 PG (25-34); MEAN CORPUSCULAR HGB CONC 34 G/DL (32-36); MEAN CORPUSCULAR VOLUME 80 FL (80-99); MEAN PLATELET VOLUME 11.8 FL (7.4-10.4); MONOCYTES # (AUTO) 0.6 X 10^3 (0.0-1.0); MONOCYTES % (AUTO) 9 % (0-12); NEUTROPHILS # (AUTO) 4.9 X 10^3 (1.8-7.8); NEUTROPHILS % (AUTO) 69 % (42-75); PLATELET COUNT 196 10^3/uL (130-400); RED CELL DISTRIBUTION WIDTH 14.6 % (10.0-14.5); WHITE BLOOD COUNT 7.1 10^3/uL (4.3-11.0)
[2019-10-11 12:48] LABS: ALANINE AMINOTRANSFERASE 15 U/L (0-55); ALBUMIN 4.1 GM/DL (3.2-4.5); ALKALINE PHOSPHATASE 74 U/L (40-136); BILIRUBIN,TOTAL 0.7 MG/DL (0.1-1.0); BUN/CREATININE RATIO 13; CALCIUM 9.1 MG/DL (8.5-10.1); CARBON DIOXIDE 22 MMOL/L (21-32); CHLORIDE 110 MMOL/L (98-107); CREATININE SERUM 0.82 MG/DL (0.60-1.30); GFR ESTIMATED > 60; GLUCOSE 86 MG/DL (70-105); POTASSIUM 4.1 MMOL/L (3.6-5.0); SODIUM 141 MMOL/L (135-145); TOTAL PROTEIN 6.8 GM/DL (6.4-8.2)
[2019-10-11 13:12] LABS: ERYTHROCYTE SEDIMENTATION RATE 1 MM/HR (0-20)
[2019-10-11 13:15] VITALS: BP 123/68
== END 2019-10-11 13:14 | disposition home or self-care (01) ==
LOC: EDUNIT# 10:39 → ER 10:40
DX: T63.331A Toxic effect of venom of brown recluse spider, accidental (unintentional), initial encounter (principal); J45.909 Unspecified asthma, uncomplicated
CPT/HCPCS: 36415; 80053; 84703; 85025; 85652; 86141; 99283

== ENCOUNTER 2020-04-25 16:30 | Emergency (ER) | payer OTHER, BC ==
[~2020-04-25] VITALS: Ht 157.4 cm; Wt 65.8 kg
[2020-04-25 16:46] VITALS: BP 131/78
--- NOTE | 2020-04-25 16:55 | ED Chest Pain ---
General Stated Complaint: LEFT SIDE PAIN Source: patient Exam Limitations: no limitations History of Present Illness Date Seen by Provider: Apr 25, 2020 Time Seen by Provider: 16:48 Initial Comments Left anterior/lateral lower chest pain that began at 4 AM this morning. It is worsened by palpation and laying on her left side. No pain with deep breathing. She intermittently has some shortness of breath. No fevers no chills. No cough. No left upper abdominal pain. Timing/Duration: 1-3 hours Severity/Quality: moderate Location: central Radiation: no radiation Activities at Onset: none ASA po SURGICAL ASSISTANT: No NTG SL SURGICAL ASSISTANT: No Associated Symptoms: denies symptoms Allergies and Home Medications Allergies Coded Allergies: No Known Drug Allergies (Verified , 08/14/08) Home Medications [Albuteral Tx] , ONCE, (Reported) Patient Home Medication List Home Medication List Reviewed: Yes Review of Systems Review of Systems Constitutional: see HPI EENTM: No Symptoms Reported Respiratory: No Symptoms Reported Cardiovascular: No Symptoms Reported Gastrointestinal: See HPI Genitourinary: No Symptoms Reported Musculoskeletal: no symptoms reported, see HPI Skin: no symptoms reported Psychiatric/Neurological: No Symptoms Reported Endocrine: No Symptoms Reported Hematologic/Lymphatic: No Symptoms Reported Past Jyevfdr-Sidjng-Bckneh Hx Patient Social History Type Used: Cigarettes Past Medical History Surgeries: No Respiratory: Yes Asthma Cardiac: Yes (HAD HOLE IN HEART AT DID NOT REQUIRE SURG) Neurological: Yes (MINIMAL PALSY) Sexually Transmitted Disease: No Gastrointestinal: No Musculoskeletal: No Endocrine: No Cancer: No Psychosocial: No Integumentary: No Blood Disorders: No Physical Exam Vital Signs Vital Signs - First Documented 04/25/20 16:46 Temp 36.2 Pulse 76 Resp 16 B/P (MAP) 131/78 (95) Pulse Ox 97 O2 Delivery Room Air Capillary Refill : Height, Weight, BMI Height: 5'2" Weight: 116lbs. oz. 52.153388xf; 22.00 BMI Method:Stated General Appearance: No Apparent Distress, WD/WN Respiratory: No Accessory Muscle Use, No Respiratory Distress Cardiovascular: Regular Rate, Rhythm, Normal Peripheral Pulses Gastrointestinal: Normal Bowel Sounds, Non Tender, Soft Neurologic/Psychiatric: Alert, Oriented x3 Skin: Normal Color, Warm/Dry Progress/Results/Core Measures Results/Orders Lab Results Laboratory Tests Test 04/25/20 15:05 Range/Units White Blood Count 7.1 4.3-11.0 10^3/uL Red Blood Count 4.88 3.80-5.11 10^6/uL Hemoglobin 13.4 11.5-16.0 g/dL Hematocrit 41 35-52 % Mean Corpuscular Volume 84 80-99 fL Mean Corpuscular Hemoglobin 28 25-34 pg Mean Corpuscular Hemoglobin Concent 33 32-36 g/dL Red Cell Distribution Width 13.3 10.0-14.5 % Platelet Count 214 130-400 10^3/uL Mean Platelet Volume 11.7 9.0-12.2 fL Immature Granulocyte % (Auto) 0 % Neutrophils (%) (Auto) 55 42-75 % Lymphocytes (%) (Auto) 37 12-44 % Monocytes (%) (Auto) 7 0-12 % Eosinophils (%) (Auto) 1 0-10 % Basophils (%) (Auto) 0 0-10 % Neutrophils # (Auto) 3.9 1.8-7.8 10^3/uL Lymphocytes # (Auto) 2.6 1.0-4.0 10^3/uL Monocytes # (Auto) 0.5 0.0-1.0 10^3/uL Eosinophils # (Auto) 0.1 0.0-0.3 10^3/uL Basophils # (Auto) 0.0 0.0-0.1 10^3/uL Immature Granulocyte # (Auto) 0.0 0.0-0.1 10^3/uL D-Dimer 0.30 0.00-0.49 UG/ML Sodium Level 140 135-145 MMOL/L Potassium Level 3.7 3.6-5.0 MMOL/L Chloride Level 107 98-107 MMOL/L Carbon Dioxide Level 22 21-32 MMOL/L Anion Gap 11 5-14 MMOL/L Blood Urea Nitrogen 7 7-18 MG/DL Creatinine 0.79 0.60-1.30 MG/DL Estimat Glomerular Filtration Rate > 60 BUN/Creatinine Ratio 9 Glucose Level 94 70-105 MG/DL Calcium Level 8.7 8.5-10.1 MG/DL Corrected Calcium 8.8 8.5-10.1 MG/DL Total Bilirubin 0.3 0.1-1.0 MG/DL Aspartate Amino Transf (AST/SGOT) 13 5-34 U/L Alanine Aminotransferase (ALT/SGPT) 12 0-55 U/L Alkaline Phosphatase 48 40-136 U/L C-Reactive Protein High Sensitivity 0.08 0.00-0.50 MG/DL Total Protein 6.6 6.4-8.2 GM/DL Albumin 3.9 3.2-4.5 GM/DL Serum Test, Qualitative NEGATIVE NEGATIVE My Orders Orders - LEXIE THAKUR APRN Cbc With Automated Diff (04/25/20 16:52) Hs C Reactive Protein (04/25/20 16:52) Hcg,Qualitative Serum (04/25/20 16:52) Comprehensive Metabolic Panel (04/25/20 16:52) Chest Pa/Lat (2 View) (04/25/20 16:52) Fibrin Degradation Products (04/25/20 16:52) Vital Signs/I&O 04/25/20 16:46 Temp 36.2 Pulse 76 Resp 16 B/P (MAP) 131/78 (95) Pulse Ox 97 O2 Delivery Room Air Departure Impression Primary Impression: Chest wall pain Additional Impression: Costochondritis Disposition: 01 HOME, SELF-CARE Condition: Stable Departure-Patient Inst. Decision time for Depature: 17:39 Referrals: NO,LOCAL PHYSICIAN (PCP/Family) Primary Care Physician Patient Instructions: Costochondritis Add. Discharge Instructions: 1. Tylenol and ibuprofen for pain control. Follow-up with your doctor this week. Return to ER for any worsening. Images Torso/Trunk 1 - Tenderness LEXIE THAKUR APRN Apr 25, 2020 16:55
[2020-04-25 17:11] LABS: BASOPHILS % (AUTO) 0 % (0-10); EOSINOPHILS # (AUTO) 0.1 10^3/uL (0.0-0.3); EOSINOPHILS % (AUTO) 1 % (0-10); HEMATOCRIT 41 % (35-52); HEMOGLOBIN 13.4 g/dL (11.5-16.0); LYMPHOCYTES # (AUTO) 2.6 10^3/uL (1.0-4.0); LYMPHOCYTES % (AUTO) 37 % (12-44); MEAN CORPUSCULAR HEMOGLOBIN 28 pg (25-34); MEAN CORPUSCULAR HGB CONC 33 g/dL (32-36); MEAN CORPUSCULAR VOLUME 84 fL (80-99); MEAN PLATELET VOLUME 11.7 fL (9.0-12.2); MONOCYTES # (AUTO) 0.5 10^3/uL (0.0-1.0); MONOCYTES % (AUTO) 7 % (0-12); NEUTROPHILS # (AUTO) 3.9 10^3/uL (1.8-7.8); NEUTROPHILS % (AUTO) 55 % (42-75); PLATELET COUNT 214 10^3/uL (130-400); WHITE BLOOD COUNT 7.1 10^3/uL (4.3-11.0)
[2020-04-25 17:21] LABS: ALBUMIN 3.9 GM/DL (3.2-4.5); CHLORIDE 107 MMOL/L (98-107); POTASSIUM 3.7 MMOL/L (3.6-5.0); SODIUM 140 MMOL/L (135-145)
[2020-04-25 17:22] LABS: CALCIUM 8.7 MG/DL (8.5-10.1)
[2020-04-25 17:23] LABS: GLUCOSE 94 MG/DL (70-105); TOTAL PROTEIN 6.6 GM/DL (6.4-8.2)
[2020-04-25 17:24] LABS: CARBON DIOXIDE 22 MMOL/L (21-32)
[2020-04-25 17:25] LABS: BILIRUBIN,TOTAL 0.3 MG/DL (0.1-1.0)
[2020-04-25 17:27] LABS: ALKALINE PHOSPHATASE 48 U/L (40-136); CREATININE SERUM 0.79 MG/DL (0.60-1.30); GFR ESTIMATED > 60
[2020-04-25 17:28] LABS: BUN/CREATININE RATIO 9
[2020-04-25 17:30] LABS: ALANINE AMINOTRANSFERASE 12 U/L (0-55)
--- NOTE | 2020-04-25 17:55 | Diagnostic Imaging Report ---
INDICATION: Dyspnea. Chest pain. EXAMINATION: PA and lateral chest at 5:11 p.m. FINDINGS: There are no prior studies available for comparison. The heart size is within normal limits. The lungs are clear. There is no sign of failure, pneumonia or for pleural effusion. The mediastinum is not widened. The osseous structures are intact. IMPRESSION: There is no evidence for active disease. Dictated by: Dictated on workstation # [id number]
== END 2020-04-25 18:09 | disposition home or self-care (01) ==
LOC: EDUNIT# 16:30 → ER 16:35
DX: R07.89 Other chest pain (principal); M94.0 Chondrocostal junction syndrome [Tietze]; J45.909 Unspecified asthma, uncomplicated
CPT/HCPCS: 36415; 71046; 80053; 84703; 85025; 85379; 86141

== ENCOUNTER → 2020-08-10 | Outpatient (CLI) | payer OTHER, BC ==
--- NOTE | 2020-08-10 15:52 | Diagnostic Imaging Report ---
PROCEDURE: US PELVIC (NON OB). TECHNIQUE: Multiple Real-time grayscale images were obtained over the pelvis in various projections transabdominally. INDICATION: Pelvic pain since IUD placement in March. FINDINGS: The uterus measures 8 x 4.9 x 3.9 cm. The endometrial stripe is 4 mm. An IUD is present in the endometrial cavity appearing in good position. The right ovary measures 3.7 x 2.4 x 1.9 cm. The left ovary measures 3.5 x 1.6 x 1.7 cm. There is normal blood flow to both ovaries. There is no free fluid. IMPRESSION: Normal pelvic ultrasound with IUD appearing in good position. Dictated by: Dictated on workstation # [id number]
== END ==
LOC: RAD 14:14
PROVIDERS: ATTEND Family Medicine
DX: N39.0 Urinary tract infection, site not specified (principal); K21.9 Gastro-esophageal reflux disease without esophagitis; F41.1 Generalized anxiety disorder; A60.00 Herpesviral infection of urogenital system, unspecified; E55.9 Vitamin D deficiency, unspecified; F41.8 Other specified anxiety disorders; Z97.5 Presence of (intrauterine) contraceptive device
CPT/HCPCS: 76856

== ENCOUNTER 2021-04-26 08:41 | Emergency (ER) | payer OTHER, BC ==
[~2021-04-26] VITALS: Ht 157 cm; Wt 67.0 kg
--- NOTE | 2021-04-26 10:47 | ED Cough/URI ---
General Chief Complaint: COVID19 Suspect/Confirmed Stated Complaint: COVID POSITIVE/SOB/HEADACHE Nursing Triage Note: PT STATES HAS COVID CO OF COUGH, SOB AND LOW GRADE FEVER. SX STARTED ON 04/24, TESTED +04/25. Source: patient Exam Limitations: no limitations History of Present Illness Date Seen by Provider: Apr 26, 2021 Time Seen by Provider: 09:28 Initial Comments Here with report of cough and congestion as well as low-grade fever. Patient does have history of asthma. She is Covid positive for 3 days. He was worried about Covid and her asthma. She is vaccinated. She does not have an inhaler. She has not been on steroids recently but thinks that she might need that. Timing/Duration: getting worse, other (3 days) Severity/Quality: dry cough Modifying Factors: Improves With Albuterol Inhaler Associated Symptoms: cough, fever/chills, nasal congestion, nasal drainage, shortness of breath, sore throat, wheezing Allergies and Home Medications Allergies Coded Allergies: No Known Drug Allergies (Verified , 08/14/08) Patient Home Medication List Home Medication List Reviewed: Yes Albuterol Sulfate (Ventolin Hfa) 1 Puff Puff, 2 PUFF INH Q4H PRN for COUGH Prescribed by: GIRMA PENA on 04/26/21 1057 Prednisone (Prednisone) 20 Mg Tab, 40 MG PO DAILY Prescribed by: GIRMA PENA on 04/26/21 1057 [Albuteral Tx] , ONCE, (Reported) Entered as Reported by: CHLOE GROVER on 12/12/13 1804 Review of Systems Review of Systems Constitutional: see HPI EENTM: see HPI Respiratory: see HPI Cardiovascular: no symptoms reported Gastrointestinal: No nausea, No vomiting Genitourinary: no symptoms reported Musculoskeletal: muscle pain; No muscle weakness Skin: no symptoms reported Past Zqxlrcg-Lrnesi-Avibxb Hx Patient Social History Tobacco Use?: No Substance use?: No Alcohol Use?: No Pt feels they are or have been: No Immunizations Up To Date Tetanus Booster (TDap): Unknown First/Initial COVID19 Vaccinat: 2020 Second COVID19 Vaccination Oswald: 2020 COVID19 Vaccine Receptionist Clerk: MODERNA Past Medical History Surgery/Hospitalization HX: ASTHMA HX Surgeries: No Respiratory: Yes Asthma Cardiac: Yes (HAD HOLE IN HEART AT DID NOT REQUIRE SURG) Neurological: Yes (MINIMAL PALSY) Sexually Transmitted Disease: No Gastrointestinal: No Musculoskeletal: No Endocrine: No Cancer: No Psychosocial: No Integumentary: No Blood Disorders: No Family Medical History Reviewed Nursing Family Hx Physical Exam Vital Signs - First Documented 04/26/21 08:53 Temp 36.8 Pulse 98 Resp 20 B/P (MAP) 127/74 (91) Pulse Ox 100 Capillary Refill : Less Than 3 Seconds Height: 5'2" Weight: 116lbs. oz. 52.410802jb; 27.00 BMI Method:Stated General Appearance: WD/WN, no apparent distress HEENT: PERRL/EOMI, pharyngeal erythema Neck: full range of motion, supple Respiratory: lungs clear, normal breath sounds Cardiovascular: regular rate, rhythm, no murmur Gastrointestinal: non tender, soft Extremities: non-tender, normal inspection Neurologic/Psychiatric: alert, oriented x 3 Skin: normal color, warm/dry Progress/Results/Core Measures Suspected Sepsis SIRS Temperature: Pulse: 98 Respiratory Rate: 20 Blood Pressure 127 /74 Mean: 91 Results/Orders Vital Signs/I&O 04/26/21 04/26/21 08:53 11:00 Temp 36.8 36.8 Pulse 98 98 Resp 20 20 B/P (MAP) 127/74 (91) 127/74 Pulse Ox 100 100 Capillary Refill : Less Than 3 Seconds Blood Pressure Mean: 91 Progress Note : Progress Note Seen and evaluated. I did have discussion with the patient regarding oral antiviral therapy for COVID-19. She would prefer to do steroid and inhaler which is reasonable. She is overall low risk due to age and previous vaccination status. I did discuss with her in depth regarding return precautions. Discharged home with return precautions. Patient verbalized understanding instructions and agreement with plan. Departure Impression Primary Impression: COVID-19 virus infection Disposition: HOME, SELF-CARE Condition: Stable Departure-Patient Inst. Decision time for Depature: 10:54 Referrals: NO,LOCAL PHYSICIAN (PCP/Family) Primary Care Physician Patient Instructions: COVID-19 (DC) Add. Discharge Instructions: All discharge instructions reviewed with patient and/or family. Voiced understan ding. Drink plenty of fluids and get plenty of rest. You are positive for Covid 19. Monitor your oxygen saturation while resting. Currently it is __99__ percent. If that starts to decline below 90 while resting, please return immediately to the emergency department for further evaluation. You may take ibuprofen 600 mg every 8 hours as needed for fever or pain. You may take Tylenol/acetaminophen 1000 mg every 8 hours as needed for fever or pain if you are not taking other cold medicine that has acetaminophen in it. Do not take both at the same time as this could cause acetaminophen toxicity. Return for worse pain, fever, vomiti ng, weakness, breathing problems or other concerns as needed. Scripts Prednisone (Prednisone) 20 Mg Tab 40 MG PO DAILY, #10 TAB 0 Refills Prov: GIRMA PENA MD 04/26/21 Albuterol Sulfate (VENTOLIN HFA) 1 Puff Puff 2 PUFF INH Q4H PRN for COUGH, #1 EA 1 Refill 1 PUFF = 90 MCG Prov: GIRMA PENA MD 04/26/21 GIRMA PENA MD Apr 26, 2021 10:47
[2021-04-26] MEDS ORDERED: RT-ALBUINH INH (10:57)
[2021-04-26] MEDS ORDERED: PRD20T PO (10:57)
[2021-04-26 11:00] VITALS: BP 127/74
== END 2021-04-26 11:00 | disposition home or self-care (01) ==
LOC: EDUNIT# 08:41 → ER 08:44
DX: U07.1 COVID-19 (principal)
CPT/HCPCS: 99281

== ENCOUNTER 2022-01-04 10:19 | Emergency (ER) | payer BC, OTHER ==
[~2022-01-04 10:19] MED LIST changes: +PRD20T PO; +RT-ALBUINH INH
[2022-01-04 10:48] LABS: CLARITY,URINE SL CLOUDY; COLOR,URINE AMBER; GLUCOSE, URINE (UA) NEGATIVE (NEGATIVE); KETONES,URINE NEGATIVE (NEGATIVE); LEUKOCYTE ESTERASE ,URINE 2+ (NEGATIVE); NITRITE,URINE NEGATIVE (NEGATIVE); PROTEIN,URINE 2+ (NEGATIVE)
[2022-01-04 11:00] LABS: BACTERIA,URINE LARGE /HPF; BILIRUBIN,URINE 1+ (NEGATIVE); RBC,URINE 25-50 /HPF; WBC,URINE 25-50 /HPF
--- NOTE | 2022-01-04 11:21 | ED GU-Female ---
General Chief Complaint: - Reproductive Stated Complaint: LIGHTHEADED/DIZZY/VAG BLEEDING/6 WKS PREG Nursing Triage Note: PT AMB TO [facility] 4 WITH C/O PASSING A CLOT THIS MORNING, DIZZY AND LIGHTHEADED. PT STATES SHE IS APPROX 6-8 WEEKS BUT HAS NOT SEEN AN OB YET Source: patient Exam Limitations: no limitations History of Present Illness Date Seen by Provider: Jan 04, 2022 Time Seen by Provider: 11:17 Initial Comments This is a 21 yo female G-1, P-0 who is approximately 7 weeks gestation who presented via POV with c/o headache, dizziness, and feeling lightheaded this morning. States she went to restroom this morning and passed a small blood clot in the toilet. No other vaginal bleeding. Has mild lower abdominal cramping. Denies fever, chills, nausea, vomiting, dysuria, hematuria, diarrhea, cough, shortness of breath. Allergies and Home Medications Allergies Coded Allergies: No Known Drug Allergies (Verified , 08/14/08) Patient Home Medication List Home Medication List Reviewed: Yes Albuterol Sulfate (Ventolin Hfa) 1 Puff Puff, 2 PUFF INH Q4H PRN for COUGH Prescribed by: GIRMA PENA on 04/26/21 1057 Prednisone (Prednisone) 20 Mg Tab, 40 MG PO DAILY Prescribed by: GIRMA PENA on 04/26/21 1057 [Albuteral Tx] , ONCE, (Reported) Entered as Reported by: CHLOE GROVER on 12/12/13 1804 Review of Systems Review of Systems Constitutional: see HPI Past Seglvpp-Vwskkr-Osyzep Hx Patient Social History Tobacco Use?: No Substance use?: No Alcohol Use?: No Pt feels they are or have been: No Immunizations Up To Date Tetanus Booster (TDap): Unknown Influenza Vaccine Up-to-Date: No; Not Current First/Initial COVID19 Vaccinat: 2020 Second COVID19 Vaccination Oswald: 2020 COVID19 Vaccine Firestopper Installer: DEVIN Past Medical History Surgery/Hospitalization HX: ASTHMA HX, [facility] NO[facility] Surgeries: No Respiratory: Yes Asthma Cardiac: Yes (HAD HOLE IN HEART AT DID NOT REQUIRE SURG) Neurological: Yes (MINIMAL PALSY) Last Menstrual Period: Nov 17, 2021 Sexually Transmitted Disease: No Gastrointestinal: No Musculoskeletal: No Endocrine: No Cancer: No Psychosocial: No Integumentary: No Blood Disorders: No Physical Exam Vital Signs Vital Signs - First Documented 01/04/22 10:31 Pulse 98 Resp 20 B/P (MAP) 145/89 (107) Capillary Refill : Height, Weight, BMI Height: 5'2" Weight: 116lbs. oz. 52.037650cc; 27.00 BMI Method:Stated General Appearance: WD/WN, no apparent distress HEENT: PERRL/EOMI, normal ENT inspection, pharynx normal Neck: full range of motion, normal inspection Cardiovascular: regular rate, rhythm, no murmur Respiratory: lungs clear, normal breath sounds, no respiratory distress, no accessory muscle use Gastrointestinal: normal bowel sounds, non tender, soft Back: normal inspection, no CVA tenderness Extremities: normal range of motion, non-tender, normal inspection Neurologic/Psychiatric: no motor/sensory deficits, alert, normal mood/affect, oriented x 3 Skin: normal color, warm/dry Progress/Results/Core Measures Suspected Sepsis SIRS Temperature: Pulse: 98 Respiratory Rate: 20 Laboratory Tests 01/04/22 11:30: White Blood Count 10.1 Blood Pressure 145 /89 Mean: 107 Laboratory Tests 01/04/22 11:30: Creatinine 0.69, Platelet Count 247, Total Bilirubin 0.8 Results/Orders Lab Results Laboratory Tests Test 01/04/22 10:30 01/04/22 11:30 Range/Units Urine Color FLORIAN H Urine Clarity SL CLOUDY Urine pH 6.0 5-9 Urine Specific [place] >=1.030 1.016-1.022 Urine Protein 2+ H NEGATIVE Urine Glucose (UA) NEGATIVE NEGATIVE Urine Ketones NEGATIVE NEGATIVE Urine Nitrite NEGATIVE NEGATIVE Urine Bilirubin 1+ H NEGATIVE Urine Urobilinogen 1.0 < = 1.0 MG/DL Urine Leukocyte Esterase 2+ H NEGATIVE Urine RBC (Auto) 3+ H NEGATIVE Urine RBC 25-50 H /HPF Urine WBC 25-50 H /HPF Urine Squamous Epithelial Cells 5-10 /HPF Urine Crystals NONE /LPF Urine Bacteria LARGE H /HPF Urine Casts NONE /LPF Urine Mucus NEGATIVE /LPF Urine Culture Indicated YES White Blood Count 10.1 4.3-11.0 10^3/uL Red Blood Count 5.07 3.80-5.11 10^6/uL Hemoglobin 14.3 11.5-16.0 g/dL Hematocrit 42 35-52 % Mean Corpuscular Volume 83 80-99 fL Mean Corpuscular Hemoglobin 28 25-34 pg Mean Corpuscular Hemoglobin Concent 34 32-36 g/dL Red Cell Distribution Width 13.4 10.0-14.5 % Platelet Count 247 130-400 10^3/uL Mean Platelet Volume 11.0 9.0-12.2 fL Immature Granulocyte % (Auto) 0 % Neutrophils (%) (Auto) 74 42-75 % Lymphocytes (%) (Auto) 19 12-44 % Monocytes (%) (Auto) 6 0-12 % Eosinophils (%) (Auto) 0 0-10 % Basophils (%) (Auto) 0 0-10 % Neutrophils # (Auto) 7.5 1.8-7.8 10^3/uL Lymphocytes # (Auto) 1.9 1.0-4.0 10^3/uL Monocytes # (Auto) 0.6 0.0-1.0 10^3/uL Eosinophils # (Auto) 0.0 0.0-0.3 10^3/uL Basophils # (Auto) 0.0 0.0-0.1 10^3/uL Immature Granulocyte # (Auto) 0.0 0.0-0.1 10^3/uL Sodium Level 135 135-145 MMOL/L Potassium Level 3.8 3.6-5.0 MMOL/L Chloride Level 105 98-107 MMOL/L Carbon Dioxide Level 22 21-32 MMOL/L Anion Gap 8 5-14 MMOL/L Blood Urea Nitrogen 7 7-18 MG/DL Creatinine 0.69 0.60-1.30 MG/DL Estimat Glomerular Filtration Rate 125 BUN/Creatinine Ratio 10 Glucose Level 96 70-105 MG/DL Calcium Level 9.0 8.5-10.1 MG/DL Corrected Calcium 8.9 8.5-10.1 MG/DL Total Bilirubin 0.8 0.1-1.0 MG/DL Aspartate Amino Transf (AST/SGOT) 12 5-34 U/L Alanine Aminotransferase (ALT/SGPT) 13 0-55 U/L Alkaline Phosphatase 57 40-136 U/L Total Protein 6.8 6.4-8.2 GM/DL Albumin 4.1 3.2-4.5 GM/DL Human Chorionic Gonadotropin, Quant 29665 H <5 MIU/ML My Orders Orders - RADHIKA,STORMY D FACING CUTTING MACHINE OPERATOR Comprehensive Metabolic Panel (01/04/22 12:30) Us Ob<14 Wks Sngle W/Transvag (01/04/22 12:30) Vital Signs/I&O 01/04/22 01/04/22 10:31 14:36 Pulse 98 90 Resp 20 18 B/P (MAP) 145/89 (107) 134/80 Capillary Refill : Blood Pressure Mean: 107 Progress Note : Progress Note Patient examined, no distress. GCS-15. No active bleeding at this time. Orders placed for basic labs, HCG, Rh, and UA. Departure Impression Primary Impression: Vaginal bleeding affecting early Additional Impression: UTI (urinary tract infection) Disposition: HOME, SELF-CARE Condition: Improved Departure-Patient Inst. Decision time for Depature: 14:21 Referrals: NO,LOCAL PHYSICIAN (PCP/Family) Primary Care Physician Patient Instructions: Urinary Tract Infection, Adult (DC) Add. Discharge Instructions: Plan: 1. Take antibiotics twice a day as directed and complete full course. 2. Return to lab on Sunday01/06/22 around noon for repeat HCG levels. The ER doctor will notify you of results before 6pm. If you have not heard from ER provider please call to check on results by 5PM. 3. Drink plenty of fluids to stay hydrated 4. Pyridoxine (Vitamin B6) 25 mg every 8 hours for nausea/vomiting. May also be used in combination with doxylamine (unisom) one tab daily. 5. Keep follow up with Dr. Tee as scheduled on January 17 as previously scheduled. 6. Return to ER for any new, concerning, or worsening symptoms. All discharge instructions reviewed with patient and/or family. Voiced understanding. Scripts Cephalexin (Cephalexin) 500 Mg Tablet 500 MG PO BID for 10 Days, #20 TAB 0 Refills Prov: ABRAN GARRIDO FACING CUTTING MACHINE OPERATOR 01/04/22 Work/School Note: Work Release Form Date Seen in the Emergency Department: Jan 04, 2022 Return to Work: Jan 07, 2022 Restrictions: No Restrictions ABRAN GARRIDO FACING CUTTING MACHINE OPERATOR Jan 04, 2022 11:21
[2022-01-04 11:40] LABS: BASOPHILS % (AUTO) 0 % (0-10); EOSINOPHILS % (AUTO) 0 % (0-10); HEMATOCRIT 42 % (35-52); HEMOGLOBIN 14.3 g/dL (11.5-16.0); LYMPHOCYTES # (AUTO) 1.9 10^3/uL (1.0-4.0); LYMPHOCYTES % (AUTO) 19 % (12-44); MEAN CORPUSCULAR HEMOGLOBIN 28 pg (25-34); MEAN CORPUSCULAR HGB CONC 34 g/dL (32-36); MEAN CORPUSCULAR VOLUME 83 fL (80-99); MONOCYTES # (AUTO) 0.6 10^3/uL (0.0-1.0); MONOCYTES % (AUTO) 6 % (0-12); NEUTROPHILS # (AUTO) 7.5 10^3/uL (1.8-7.8); NEUTROPHILS % (AUTO) 74 % (42-75); PLATELET COUNT 247 10^3/uL (130-400); WHITE BLOOD COUNT 10.1 10^3/uL (4.3-11.0)
[2022-01-04 12:40] LABS: ALBUMIN 4.1 GM/DL (3.2-4.5); POTASSIUM 3.8 MMOL/L (3.6-5.0)
[2022-01-04 12:42] LABS: TOTAL PROTEIN 6.8 GM/DL (6.4-8.2)
[2022-01-04 12:44] LABS: BILIRUBIN,TOTAL 0.8 MG/DL (0.1-1.0)
[2022-01-04 12:46] LABS: CREATININE SERUM 0.69 MG/DL (0.60-1.30)
--- NOTE | 2022-01-04 13:50 | Diagnostic Imaging Report ---
TECHNIQUE: Live grayscale and color Doppler ultrasound was performed over the uterus and ovaries transabdominally and endovaginally. REASON FOR EXAM: Vaginal bleeding. Cramping. COMPARISON: None. FINDINGS: A sonolucent focus is visualized in the endometrial canal measuring 1.5 cm and demonstrating double decidual reaction. A yolk sac is visualized without evidence of pole. The uterus has a normal sonographic appearance. No focal uterine mass is seen. The bilateral ovaries are well visualized and have a normal appearance. The right ovary measures 3.3 x 2.7 x 3.0 cm. The left ovary measures 2.8 x 1.2 x 2.7 cm. No free fluid is visualized within the posterior cul-de-sac. IMPRESSION: 1. Sonolucent focus within the endometrial canal. This may represent early intrauterine gestation versus blighted ovum. Recommend continued follow-up with serial beta-hCGs and pelvic ultrasound as indicated. 2. Unremarkable sonographic appearance of the ovaries. No evidence of torsion or adnexal mass. No free fluid. Dictated by: Dictated on workstation # [id number]
[2022-01-04 14:36] VITALS: BP 134/80
[2022-01-04] MEDS ORDERED: CEPH500T PO (15:50)
== END 2022-01-04 14:37 | disposition home or self-care (01) ==
LOC: EDUNIT# 10:19 → ER 10:22
DX: O20.9 Hemorrhage in early pregnancy, unspecified (principal); O23.41 Unspecified infection of urinary tract in pregnancy, first trimester; N39.0 Urinary tract infection, site not specified; Z3A.01 Less than 8 weeks gestation of pregnancy
CPT/HCPCS: 36415; 76801; 76817; 80053; 81000; 84702; 84703; 85025; 86900; 86901; 87088

== ENCOUNTER → 2022-01-06 | Outpatient (CLI) | payer BC, OTHER ==
[~2022-01-06] MED LIST changes: +CEPH500T PO
== END ==
LOC: LAB 11:30
PROVIDERS: ATTEND Nurse Practitioner Family
DX: N93.9 Abnormal uterine and vaginal bleeding, unspecified (principal)
CPT/HCPCS: 36415; 84702

== ENCOUNTER 2022-05-24 04:27 | Emergency (ER) | payer OTHER ==
[2022-05-24] MEDS ORDERED: LIDOCAINE 2% VISCOUS 15 ML UDC MM ONE (05:30)
[2022-05-24] MEDS ORDERED: ACHD5005 PO (05:54)
--- NOTE | 2022-05-24 05:54 | ED EENT ---
History of Present Illness General Chief Complaint: Dental Problems/Pain Stated Complaint: DENTAL PAIN Nursing Triage Note: PT ARRIVAL TO ER VIA PRIVATE VEHICLE WITH COMPLAINT OF DENTAL PAIN. DENTAL PAIN L/R UPPER BACK TEETH, LEFT BOTTOM BACK TOOTH. [facility]. Source: patient Exam Limitations: no limitations History of Present Illness Date Seen by Provider: May 24, 2022 Time Seen by Provider: 05:10 Initial Comments This 21-year-old young lady presents at about 25 weeks gestational age with complaints of dental pain and presumed dental abscesses. She has pain in multiple areas. She has been on clindamycin for a few days. She has not noted much improvement with that. Dr. Brown is her primary obstetrical provider. Allergies and Home Medications Allergies Coded Allergies: No Known Drug Allergies (Verified , 08/14/08) Patient Home Medication List Home Medication List Reviewed: Yes Albuterol Sulfate (Ventolin Hfa) 1 Puff Puff, 2 PUFF INH Q4H PRN for COUGH Prescribed by: GIRMA PENA on 04/26/21 1057 Cephalexin (Cephalexin) 500 Mg Tablet, 500 MG PO BID Prescribed by: ABRAN GARRIDO on 01/04/22 1550 Hydrocodone/Acetaminophen (Hydrocodone-Acetamin 5-325 mg) 5 Mg-325 Mg Tablet, 1 TAB PO Q4H PRN for PAIN-MODERATE (5-7) Prescribed by: OSCAR MIRANDA on 05/24/22 0554 Prednisone (Prednisone) 20 Mg Tab, 40 MG PO DAILY Prescribed by: GIRMA PENA on 04/26/21 1057 [Albuteral Tx] , ONCE, (Reported) Entered as Reported by: CHLOE GROVER on 12/12/13 1804 Review of Systems Review of Systems Constitutional: no symptoms reported Eyes: No Symptoms Reported Ears: No Symptoms Reported Nose: no symptoms reported Mouth: see HPI Throat: no symptoms reported Respiratory: no symptoms reported Cardiovascular: no symptoms reported Gastrointestinal: no symptoms reported : Yes Musculoskeletal: no symptoms reported Skin: no symptoms reported Neurological: No Symptoms Reported Hematologic/Lymphatic: No Symptoms Reported Past Okqlkkn-Lzuyvk-Whrjon Hx Patient Social History Tobacco Use?: No Use of E-Cig and/or Vaping dev: No Substance use?: No Alcohol Use?: No Pt feels they are or have been: No Immunizations Up To Date Tetanus Booster (TDap): Unknown Influenza Vaccine Up-to-Date: No; Not Current First/Initial COVID19 Vaccinat: 2020 Second COVID19 Vaccination Oswald: 2020 Past Medical History Surgery/Hospitalization HX: ASTHMA HX, [facility] Surgeries: No Respiratory: Yes Asthma Cardiac: Yes (HAD HOLE IN HEART AT DID NOT REQUIRE SURG) Neurological: Yes (MINIMAL PALSY) Sexually Transmitted Disease: No Gastrointestinal: No Musculoskeletal: No Endocrine: No Cancer: No Psychosocial: No Integumentary: No Blood Disorders: No Physical Exam Vital Signs Vital Signs - First Documented 05/24/22 04:39 Temp 36.5 Pulse 87 Resp 20 B/P (MAP) 132/79 (96) Pulse Ox 98 O2 Delivery Room Air Height, Weight, BMI Height: 5'2" Weight: 116lbs. oz. 52.089390jd; 27.00 BMI Method:Stated General Appearance: WD/WN, no apparent distress Eyes: bilateral eye normal inspection Ears: bilateral ear auricle normal, bilateral ear TM normal, bilateral ear other (cannals erythematous) Nose: normal inspection Neck: normal inspection Cardiovascular: regular rate, rhythm, no edema, no murmur Respiratory: lungs clear, normal breath sounds, no respiratory distress Neurologic/Psychiatric: spray mixer II-XII nml as tested, no motor/sensory deficits, alert, normal mood/affect, oriented x 3 Skin: normal color, warm/dry Progress/Results/Core Measures Results/Orders My Orders Orders - OSCAR SOTO MD Lidocaine 2% Viscous 15 Ml (Xylocaine Vi (05/24/22 05:30) Medications Given in ED Vital Signs/I&O Blood Pressure Mean: 96 Progress Progress Note : Progress Note Anesthetic gauze pads prepped and provided with instructions. She is already on antibiotics and does not need that altered. Pain management was discussed and a small quantity of hydrocodone was provided. She is at a stage of the where hydrocodone is permissible. See discharge instructions for further discussion. Departure Impression Primary Impression: Dental caries Additional Impression: Pain, dental Disposition: HOME, SELF-CARE Condition: Improved Departure-Patient Inst. Decision time for Depature: 05:49 Referrals: [facility] (PCP/Family) Primary Care Physician Patient Instructions: Tooth Decay ED, Dental Pain Add. Discharge Instructions: Continue your antibiotics as previously prescribed and continue pursuing referral to a dentist or oral surgeon for definitive treatment. For mild pain you may use Tylenol (acetaminophen) up to 1000 mg every 6 hours as needed. For more severe pain, use hydrocodone as prescribed. Hydrocodone may cause drowsiness so do not drive, operate machinery, or make important decisions while on hydrocodone. Hydrocodone may also cause constipation so you should use a stool softener. Drink plenty of water while on hydrocodone. You may use topical treatments such as the anesthetic gauze pads provided through the ER. Please be advised these gauze pads may numb the cheeks, tongue, and throat. Eat and drink very carefully after using them. Do NOT fall asleep with anesthetic gauze pads in your mouth as this creates a choking risk. You may also try barrier treatments such as qaqh-keh-auvdfzy dental cement or wax to prevent food, drink, and air from contacting exposed nerves. Avoid foods and beverages that cause more irritation. Lukewarm items should be better tolerated than hot or cold foods and beverages. Follow-up with Dr. Brown as soon as possible and discuss further pain management with her as hydrocodone and other prescription pain medications should not be used further into the third trimester. Return to care if you have worsening symptoms despite following these instructions or if you develop other symptoms such as fever or chills. All discharge instructions reviewed with patient and/or family. Voiced understanding. Scripts Hydrocodone/Acetaminophen (Hydrocodone-Acetamin 5-325 mg) 5 Mg-325 Mg Tablet 1 TAB PO Q4H PRN for PAIN-MODERATE (5-7), #10 TAB Prov: OSCAR SOTO MD 05/24/22 Copy Copies To 1: LIAM BROWN MD, JOSHUA T MD May 24, 2022 05:54
[2022-05-24 05:59] VITALS: BP 137/78
== END 2022-05-24 05:59 | disposition home or self-care (01) ==
LOC: EDUNIT# 04:27 → ER 04:31
DX: O99.612 Diseases of the digestive system complicating pregnancy, second trimester (principal); K02.9 Dental caries, unspecified; Z3A.25 25 weeks gestation of pregnancy; Z28.310 Unvaccinated for COVID-19
CPT/HCPCS: 99283

== ENCOUNTER 2022-06-29 08:19 | Outpatient (CLI) | payer OTHER ==
[~2022-06-29] VITALS: Ht 157.5 cm; Wt 75.7 kg
[~2022-06-29 08:19] MED LIST changes: +ACHD5005 PO
[2022-06-29 08:42] VITALS: BP 122/65
[2022-06-29 08:51] VITALS: BP 122/65
[2022-06-29 08:52] LABS: BILIRUBIN,URINE NEGATIVE (NEGATIVE); CLARITY,URINE CLEAR; COLOR,URINE YELLOW; GLUCOSE, URINE (UA) NEGATIVE (NEGATIVE); KETONES,URINE NEGATIVE (NEGATIVE); LEUKOCYTE ESTERASE ,URINE NEGATIVE (NEGATIVE); NITRITE,URINE NEGATIVE (NEGATIVE); PROTEIN,URINE NEGATIVE (NEGATIVE)
[2022-06-29 09:00] VITALS: BP 112/69
[2022-06-29 09:03] LABS: BACTERIA,URINE NEGATIVE /HPF; RBC,URINE RARE /HPF; SQUAMOUS EPITHELIAL CELL,UR RARE /HPF; WBC,URINE RARE /HPF
[2022-06-29] MEDS ORDERED: PREN-172 PO (09:13)
[2022-06-29 09:15] VITALS: BP 108/58
[2022-06-29] MEDS ORDERED: hydrOXYzine (ATARAX) 10 MG TAB PO NR (09:30)
== END 2022-06-29 09:30 ==
LOC: WSo 08:19 → LDRP 08:19 → WSo 09:30
PROVIDERS: ATTEND Family Medicine
DX: O26.859 Spotting complicating pregnancy, unspecified trimester (principal); R10.9 Unspecified abdominal pain; Z3A.00 Weeks of gestation of pregnancy not specified
CPT/HCPCS: 81000; G0463; 99213

== ENCOUNTER 2022-07-10 09:12 | Outpatient (CLI) | payer OTHER ==
[~2022-07-10] VITALS: Ht 157.5 cm; Wt 77.9 kg
[~2022-07-10 09:12] MED LIST changes: +PREN-172 PO
[2022-07-10 09:49] VITALS: BP 107/58
[2022-07-10 09:49] LABS: BILIRUBIN,URINE NEGATIVE (NEGATIVE); CLARITY,URINE CLEAR; COLOR,URINE YELLOW; GLUCOSE, URINE (UA) NEGATIVE (NEGATIVE); KETONES,URINE NEGATIVE (NEGATIVE); LEUKOCYTE ESTERASE ,URINE NEGATIVE (NEGATIVE); NITRITE,URINE NEGATIVE (NEGATIVE); PH,URINE 6.5 (5-9); PROTEIN,URINE NEGATIVE (NEGATIVE)
[2022-07-10 09:58] LABS: BACTERIA,URINE TRACE /HPF; SQUAMOUS EPITHELIAL CELL,UR 0-2 /HPF; WBC,URINE RARE /HPF
[2022-07-10 10:02] VITALS: BP 123/56
[2022-07-10 10:10] VITALS: BP 110/53
[2022-07-10 10:25] VITALS: BP 107/52
[2022-07-10] MEDS ORDERED: NS IV 1000 ML 1,000 ML IV SCH (10:30)
[2022-07-10] MEDS ORDERED: ACETAMINOPHEN 500 MG TAB (TYLENOL) PO ONE (10:30)
[2022-07-10 10:44] LABS: BASOPHILS % (AUTO) 0 % (0-10); EOSINOPHILS % (AUTO) 0 % (0-10); HEMATOCRIT 35 % (35-52); HEMOGLOBIN 11.5 g/dL (11.5-16.0); LYMPHOCYTES # (AUTO) 1.9 10^3/uL (1.0-4.0); LYMPHOCYTES % (AUTO) 16 % (12-44); MEAN CORPUSCULAR HEMOGLOBIN 27 pg (25-34); MEAN CORPUSCULAR HGB CONC 33 g/dL (32-36); MEAN CORPUSCULAR VOLUME 80 fL (80-99); MEAN PLATELET VOLUME 11.8 fL (9.0-12.2); MONOCYTES # (AUTO) 0.7 10^3/uL (0.0-1.0); MONOCYTES % (AUTO) 6 % (0-12); NEUTROPHILS # (AUTO) 9.2 10^3/uL (1.8-7.8); NEUTROPHILS % (AUTO) 76 % (42-75); PLATELET COUNT 211 10^3/uL (130-400); WHITE BLOOD COUNT 12.1 10^3/uL (4.3-11.0)
[2022-07-10] MEDS ORDERED: ACYC400T21 (10:46)
[2022-07-10 11:10] LABS: ALBUMIN 3.3 GM/DL (3.2-4.5); BILIRUBIN,TOTAL 0.3 MG/DL (0.1-1.0); CALCIUM 7.6 MG/DL (8.5-10.1); CREATININE SERUM 0.58 MG/DL (0.60-1.30); POTASSIUM 3.7 MMOL/L (3.6-5.0); TOTAL PROTEIN 5.9 GM/DL (6.4-8.2)
--- NOTE | 2022-07-11 08:15 | Physician Query-Final Dx ---
MICKI07/11/22 0815: Clinic Account Progress/Dx Physician Query: Please give diagnosis Please include # weeks gestation Date of Service Jul 10, 2022 at 09:12 LIAM BROWN MD 07/11/22 1637: Clinic Account Progress/Dx DIAGNOSIS: Diagnosis Headache complicating - improved with IVF and acetaminophen Negative preeclampsia labs and normal BP 32 weeks gestation Reassuring status MICKI,MarJul 11, 2022 08:15 LIAM BROWN MD Jul 11, 2022 16:37
== END 2022-07-10 13:40 | disposition home or self-care (01) ==
LOC: LDRP 09:12 → WSo 09:12
PROVIDERS: ATTEND Family Medicine
DX: O26.893 Other specified pregnancy related conditions, third trimester (principal); R51.9 Headache, unspecified; Z3A.32 32 weeks gestation of pregnancy
CPT/HCPCS: 36415; 80053; 81000; 85025

== ENCOUNTER 2022-08-08 17:46 | Outpatient (CLI) | payer OTHER ==
[~2022-08-08] VITALS: Ht 157.5 cm; Wt 80.0 kg
[~2022-08-08 17:46] MED LIST changes: +ACYC400T21
[2022-08-08 18:00] VITALS: BP 114/74
[2022-08-08 18:20] VITALS: BP 119/72
[2022-08-08 18:21] VITALS: BP 114/74
[2022-08-08 18:54] LABS: BILIRUBIN,URINE NEGATIVE (NEGATIVE); CLARITY,URINE CLEAR; COLOR,URINE YELLOW; GLUCOSE, URINE (UA) NEGATIVE (NEGATIVE); KETONES,URINE NEGATIVE (NEGATIVE); LEUKOCYTE ESTERASE ,URINE NEGATIVE (NEGATIVE); NITRITE,URINE NEGATIVE (NEGATIVE); PH,URINE 6.5 (5-9); PROTEIN,URINE NEGATIVE (NEGATIVE)
[2022-08-08 19:03] LABS: BACTERIA,URINE TRACE /HPF; SQUAMOUS EPITHELIAL CELL,UR 0-2 /HPF; WBC,URINE 0-2 /HPF
[2022-08-08 19:04] LABS: HYALINE CASTS, URINE RARE /LPF
--- NOTE | 2022-08-09 08:18 | Physician Query-Final Dx ---
MICKI08/09/22 0818: Clinic Account Progress/Dx Physician Query: Please give diagnosis Please include # weeks gestation Date of Service August 08, 2022 at 17:46 LIAM BROWN MD 08/10/22 1618: Clinic Account Progress/Dx DIAGNOSIS: Diagnosis Abdominal pain complicating 37 weeks gestation MICKI,MarAugust 09, 2022 08:18 LIAM BROWN MD August 10, 2022 16:18
== END 2022-08-08 19:30 | disposition home or self-care (01) ==
LOC: WSo 17:46 → LDRP 17:47 → WSo 19:30
PROVIDERS: ATTEND Family Medicine
DX: O26.893 Other specified pregnancy related conditions, third trimester (principal); R10.9 Unspecified abdominal pain; Z3A.37 37 weeks gestation of pregnancy
CPT/HCPCS: 81000; G0463; 99213

== ENCOUNTER 2022-08-15 00:24 | Inpatient (IN) | payer OTHER ==
[2022-08-15] VITALS (70 sets, daily range): BP systolic 105–142; BP diastolic 53–94
[~2022-08-15] VITALS: Ht 157.5 cm; Wt 80.1 kg
[2022-08-15] MEDS ORDERED: D5 LR IV SOLUTION 1,000 ML IV ONE ×2 (01:19→17:15)
[2022-08-15] MEDS ORDERED: MINERAL OIL 30 ML UDC TOP PRN (01:30)
[2022-08-15] MEDS: D5 LR IV SOLUTION 1,000 ML IV SCH ×2 (01:30→09:21)
--- NOTE | 2022-08-15 01:34 | History & Physical-OB ---
OB - Chief Complaint & HPI Date/Time Date of Admission: Date of Admission: 08/15/22 Date seen by a Provider: August 15, 2022 Time Seen by a Provider: 01:10 Chief Complaint/History OB-Reason for Admission/Chief: Onset of Labor Hx : 1 Hx Para: 0 Expected Date of Delivery: Sep 01, 2022 Gestational Age in Weeks: 37 Gestational Age in Days: 4 History of Labs A+, antibody neg, RI. HIV/HepB/HepC/RPR NR. GC/chlamydia neg. Penta screen low risk. 1 hour glucola neg. GBS negative. Other G1 at 37w4d with complicated by history of herpes, reports she started having contractions around 2 am on August 15, but over the last about 4 hours they became persistent and unbearable until she decided she needed to come in. She states she has not been taking acyclovir, but denies any genital lesions or pain. Reports normal movement, no bleeding prior to cervical exam and no leaking fluid. Allergies and Home Medications Allergies Coded Allergies: No Known Drug Allergies (Verified , 08/14/08) Patient Home Medication List Home Medication List Reviewed: Yes No Active Prescriptions or Reported Meds OB - History Hx of Present Ultrasounds: Normal mid trimester US Obstetrical Complications: Other (history of herpes, reported outbreak 06/19/22 that was treated, exam on 07/03/22 with no lesions and suppresive therapy prescribed) Information Induced Hypertension: No Maternal Gestational Diabetes: No Hemorrhage: No Obstetrical History Hx : 1 Hx Para: 0 Hx # Term Pregnancies: 0 Hx # Pregnancies: 0 Number of Living Children: 0 Hx Termination: No Hx Multiple Gestation: No Hx Ectopic : No Hx Stillbirth: No Hx Complication: No Hx Induced Hypertens: No Hx Maternal Gestational Diabet: No Hx Hemorrhage: No Delivery History Hx Blood Disorders: No Patient Past Medical History PMHx: Asthma (mild intermittent, last inhaler use in early teens) Genital herpes SurgHx: Denies Social History/Family History Alcohol Use: Denies Use Recreational Drug Use: No (history of THC, reported d/c at start of ) Smoking Cessation: Former smoker 2nd Hand Smoke Exposure: No Immunizations Influenza Vaccine Up-to-Date: No; Not Current First/Initial COVID19 Vaccine: 05/20/2020 Second COVID19 Vaccination: 06/24/2020 COVID19 Vaccine Senior Marketing Specialist: Moderna Tetanus Booster (TDap): Less than 5yrs (06/19/22) Rubella: immune RPR/VDRL: Negative GBS Status: Negative HBsAG: Negative OB - Admission Exam Physical Exam HEENT: NCAT Abdomen: Gravid (vertex confirmed with bedside ultrasound) Extremities: Normal Cervical Dilatation: 5cm Effacement: 50% Station: -3 Membranes: Intact Heart Rate: 140's Accelerations: Accelerations Present Decelerations: No Decelerations Short Term Variability: Present Biological Lab Technician Variability: Average (6-25) Contractions on Admission: < 5 Minutes Apart OB - Assessment/Plan/Diagnosis Assessment Admission Dx Active labor at 37w4d GBS negative Rubella immune History of genital herpes with no active lesions or prodrome Admission Status: Inpatient Order (span 2 midnights) Reason for Inpatient Admission: Labor, delivery and course Plan Problems: (1) Active labor at term Assessment & Plan: Desires epidural, fluid bolus started. Anticipate vaginal delivery. (2) Genital herpes complicating Assessment & Plan: Vaginal exam done, no lesions, no prodromal symptoms reported either. (3) 37 weeks gestation of LIAM BROWN MD August 15, 2022 01:34
[2022-08-15 01:36] LABS: BASOPHILS % (AUTO) 0 % (0-10); EOSINOPHILS # (AUTO) 0.1 10^3/uL (0.0-0.3); EOSINOPHILS % (AUTO) 0 % (0-10); HEMATOCRIT 35 % (35-52); HEMOGLOBIN 11.5 g/dL (11.5-16.0); LYMPHOCYTES # (AUTO) 2.1 10^3/uL (1.0-4.0); LYMPHOCYTES % (AUTO) 14 % (12-44); MEAN CORPUSCULAR HEMOGLOBIN 25 pg (25-34); MEAN CORPUSCULAR HGB CONC 33 g/dL (32-36); MEAN CORPUSCULAR VOLUME 78 fL (80-99); MEAN PLATELET VOLUME 12.3 fL (9.0-12.2); MONOCYTES # (AUTO) 0.9 10^3/uL (0.0-1.0); MONOCYTES % (AUTO) 6 % (0-12); NEUTROPHILS # (AUTO) 12.1 10^3/uL (1.8-7.8); NEUTROPHILS % (AUTO) 79 % (42-75); PLATELET COUNT 210 10^3/uL (130-400); WHITE BLOOD COUNT 15.3 10^3/uL (4.3-11.0)
[2022-08-15] MEDS ORDERED: fentaNYL 2 mcg/ml BUPIVA 0.125 100 ML ONE (01:36)
[2022-08-15] MEDS ORDERED: METOCLOPRAMIDE INJ 10 MG/2 ML (REGLAN) IV PRN (03:00)
[2022-08-15] MEDS ORDERED: diphenhydrAMINE 50 MG/ML INJ (BENADRYL) IV PRN (03:00)
[2022-08-15] MEDS ORDERED: LACTATED RINGERS 1,000 ML IV SCH (03:00)
[2022-08-15] MEDS ORDERED: ONDANSETRON 4 MG/2 ML (SDV) Z0FRAN IV PRN (03:00)
[2022-08-15] MEDS ORDERED: NALOXONE 0.4 MG/ML 1 ML (NARCAN) VIAL IV PRN ×2 (03:00)
[2022-08-15 05:12] LABS: BILIRUBIN,URINE NEGATIVE (NEGATIVE); CLARITY,URINE SL CLOUDY; COLOR,URINE YELLOW; GLUCOSE, URINE (UA) NEGATIVE (NEGATIVE); KETONES,URINE TRACE (NEGATIVE); LEUKOCYTE ESTERASE ,URINE NEGATIVE (NEGATIVE); NITRITE,URINE NEGATIVE (NEGATIVE); PROTEIN,URINE NEGATIVE (NEGATIVE)
[2022-08-15 05:23] LABS: WBC,URINE RARE /HPF
[2022-08-15 05:24] LABS: BACTERIA,URINE FEW /HPF; SQUAMOUS EPITHELIAL CELL,UR RARE /HPF
[2022-08-15 05:25] LABS: AMORPHOUS SEDIMENT,UR MOD AMOR PHOSPHATE /LPF; CALCIUM OXALATE CRYSTALS,UR MODERATE /LPF
[2022-08-15] MEDS ORDERED: CATHETER FLUSH 10 ML SYR IV SCH ×2 (06:00→22:00)
[2022-08-15] MEDS: fentaNYL 2 mcg/ml BUPIVA 0.125 100 ML EPI SCH ×2 (06:25→09:22)
[2022-08-15] MEDS ORDERED: ACETAMINOPHEN 500 MG TAB (TYLENOL) ONE (06:46)
[2022-08-15] MEDS: ACETAMINOPHEN 500 MG TAB (TYLENOL) PO PRN (06:47)
[2022-08-15] MEDS ORDERED: OXYTOCIN PRE-MIX DRIP 1,000 ML IV ONE (07:47)
--- NOTE | 2022-08-15 12:18 | Labor Progress Note ---
Labor Progress Note Labor Progress Note Date Seen by Provider: August 15, 2022 Time Seen by Provider: 12:05 Subjective: Pt denies complaints. She is wanting to have her water broken, hoping to move labor along. Objective: Cervical exam: /- Consistency: soft Position: anterior Presentation: vertex heart tones: 140 beats per minute, moderate variability, reactive Tocometer: 2-3 ctx/10 minutes Assessment/Plan: Michaela Thornton is a 21 /Para 1 / 0,Gestational Age (wks)37 here for active labor. AROM done at time of exam with slightly blood tinged fluid return. CEFM/TOCO Anesthesia: Epidural Anticipate vaginal delivery. Vitals - Labs Vital Signs - I&O Vital Signs Date Time Temp Pulse Resp B/P (MAP) Pulse Ox O2 Delivery O2 Flow Rate FiO2 08/15/22 09:15 78 18 110/57 (74) 97 Room Air 08/15/22 09:00 67 18 121/60 (80) 96 Room Air 08/15/22 08:45 82 18 105/55 (72) 96 Room Air 08/15/22 08:30 66 18 116/60 (78) 96 Room Air 08/15/22 08:15 74 18 113/57 (75) 96 Room Air 08/15/22 08:00 67 18 118/61 (80) 96 Room Air 08/15/22 07:45 79 18 113/55 (74) 96 Room Air 08/15/22 07:30 36.6 82 18 110/56 (74) 96 Room Air 08/15/22 07:15 74 18 110/56 (74) 97 Room Air 08/15/22 07:00 74 118/56 (76) 96 Room Air 08/15/22 06:45 74 116/59 (78) 96 Room Air 08/15/22 06:30 76 116/60 (78) 97 Room Air 08/15/22 06:15 76 112/60 (77) 96 Room Air 08/15/22 06:00 86 118/65 (82) 97 Room Air 08/15/22 05:45 78 113/58 (76) 97 Room Air 08/15/22 05:30 74 110/57 (74) 96 Room Air 08/15/22 05:15 36.7 67 108/53 (71) 96 Room Air 08/15/22 05:00 67 121/56 (77) 96 Room Air 08/15/22 04:45 74 117/62 (80) 97 Room Air 08/15/22 04:30 81 122/59 (80) 96 Room Air 08/15/22 04:15 72 123/59 (80) 96 Room Air 08/15/22 04:00 75 125/57 (79) 96 Room Air 08/15/22 03:45 76 118/56 (76) 96 Room Air 08/15/22 03:30 72 114/55 (74) 96 Room Air 08/15/22 03:15 72 118/56 (76) 96 Room Air 08/15/22 03:00 Room Air 08/15/22 02:56 96 133/58 (83) 97 Room Air 08/15/22 02:50 84 130/59 (82) 97 Room Air 08/15/22 02:44 82 135/74 (94) 98 Room Air 08/15/22 02:41 81 132/70 (90) 98 Room Air 08/15/22 02:38 81 139/73 (95) 98 Room Air 08/15/22 02:35 84 139/75 (96) 98 Room Air 08/15/22 02:32 87 139/75 (96) 99 Room Air 08/15/22 02:30 93 133/76 (95) 99 Room Air 08/15/22 02:27 86 129/65 (86) 99 Room Air 08/15/22 01:00 37.1 91 18 99 Room Air I & O 08/15/22 07:00 Intake Total 1000 ml Balance 1000 ml Labs Laboratory Tests 08/15/22 00:45: Urine Color YELLOW, Urine Clarity SL CLOUDY, Urine pH 7.0, Urine Specific [place] 1.015L, Urine Protein NEGATIVE, Urine Glucose (UA) NEGATIVE, Urine Ketones TRACEH, Urine Nitrite NEGATIVE, Urine Bilirubin NEGATIVE, Urine Urobilinogen 0.2, Urine Leukocyte Esterase NEGATIVE, Urine RBC (Auto) NEGATIVE, Urine RBC NONE, Urine WBC RARE, Urine Squamous Epithelial Cells RARE, Urine Crystals PRESENTH, Urine Calcium Oxalate Crystals MODERATEH, Urine Amorphous Sediment MOD MICHELA PHOSPHATEH, Urine Bacteria FEWH, Urine Casts NONE, Urine Mucus NEGATIVE, Urine Culture Indicated NO 08/15/22 01:05: White Blood Count 15.3H, Red Blood Count 4.55, Hemoglobin 11.5, Hematocrit 35, Mean Corpuscular Volume 78L, Mean Corpuscular Hemoglobin 25, Mean Corpuscular Hemoglobin Concent 33, Red Cell Distribution Width 13.4, Platelet Count 210, Mean Platelet Volume 12.3H, Immature Granulocyte % (Auto) 1, Neutrophils (%) (Auto) 79H, Lymphocytes (%) (Auto) 14, Monocytes (%) (Auto) 6, Eosinophils (%) (Auto) 0, Basophils (%) (Auto) 0, Neutrophils # (Auto) 12.1H, Lymphocytes # (Auto) 2.1, Monocytes # (Auto) 0.9, Eosinophils # (Auto) 0.1, Basophils # (Auto) 0.0, Immature Granulocyte # (Auto) 0.1, Syphilis Total Antibody Negative LIAM BROWN MD August 15, 2022 12:18
[2022-08-15] MEDS ORDERED: OXYTOCIN PRE-MIX DRIP 500 ML IV SCH (13:30)
[2022-08-15] MEDS ORDERED: LIDOCAINE/EPI 2% 1:200,00 (XYLOCAINE) 20 ML VIAL ONE (14:49)
[2022-08-15] MEDS ORDERED: MINERAL OIL 30 ML UDC ONE (14:50)
[2022-08-15] MEDS ORDERED: MINERAL OIL 30 ML UDC PO ONE (15:00)
[2022-08-15] MEDS: OXYTOCIN PRE-MIX DRIP 500 ML IV SCH ×2 (15:10→15:41)
[2022-08-15] MEDS ORDERED: METHYLERGONOVINE 0.2 MG/ML (METHERGINE) AMP ONE (15:14)
[2022-08-15] MEDS ORDERED: METHYLERGONOVINE 0.2 MG/ML (METHERGINE) AMP IM ONE (15:16)
--- NOTE | 2022-08-15 15:43 | OB Labor & Delivery Record ---
Vag Delivery Note Vag Delivery Note Date of Delivery: 08/15/22 Preoperative Diagnosis: Michaela Thornton is a 21 /Para 1 / 0,Gestational Age (wks)37with 4 days Postoperative Diagnosis: Same Surgeon: LIAM BROWN Mobile Service Rv Technician: Marimar Hancock Anesthesia: Epidural Delivery Type: Vacuum assed vaginal delivery Findings: Viable male , apgars 7/9, weight 7#13 Lacerations: bilateral vaginal wall/sulcus Intact placenta with 3 vessel cord. No nuchal cord, body cord or shoulder dystocia Estimated Blood Loss: 750 ml Complications: None Condition: Stable Description of Procedure: The patient is a 21 year old female who presented in active labor. She was admitted and informed consent was obtained. Her labor course was remarkable for prolonged active phase. She progressed to complete dilatation and began to push. She was then set up for delivery. In spite of good maternal pushing effort and progression of infant's head, even after , the head did not deliver immediately and the 's heart rate was in the 60s, so Mity-vac was placed and pressure increased to 40 cm H20 and with the next maternal push/one pull, the infant's head was delivered atraumatically in the HILLARY position. The shoulders and remainder of the 's body were then delivered without difficulty. Upon delivery, the was placed on maternal chest and the mouth and nares were bulb suctioned and the cord was doubly clamped and cut and the was handed off to the nursery staff. An intact placenta with 3-vessel cord delivered via Brandy and there was found to be moderate bleeding.~ Vigorous fundal massage was performed and the fundus was found to be firm. IV oxytocin was given. Continued to have persistent bleeding, so methergine 0.2 mg IM given with improvement. However, she started bleeding again and tranexamic acid was given and bleeding resolved. Examination of the vagina and perineum revealed bilateral vaginal sulcus lacerations extending behind cervix. Dr. Hancock assisted in retraction and repair and the lacerations were repaired in the running fashion with 3-0 vicryl rapide suture. Following the repair, sponge, instrument and needle counts were correct. Mom and baby were both in stable condition in the labor suite. Vitals - Labs Vital Signs - I&O Vital Signs Date Time Temp Pulse Resp B/P (MAP) Pulse Ox O2 Delivery O2 Flow Rate FiO2 5/30/23 13:00 71 18 115/67 (83) 98 Room Air 08/15/22 12:45 74 18 112/69 (83) 98 Room Air 08/15/22 12:30 72 18 107/58 (74) 98 Room Air 08/15/22 12:15 71 18 115/65 (82) 96 Room Air 08/15/22 12:00 78 18 125/65 (85) 96 Room Air 08/15/22 11:45 36.1 76 18 127/62 (83) 97 Room Air 08/15/22 11:30 68 18 124/58 (80) 97 Room Air 08/15/22 11:15 68 18 124/58 (80) 97 Room Air 08/15/22 11:00 83 18 125/62 (83) 96 Room Air 08/15/22 10:45 72 18 118/64 (82) 96 Room Air 08/15/22 10:30 96 18 117/64 (81) 97 Room Air 08/15/22 10:15 78 18 119/60 (79) 97 Room Air 08/15/22 10:00 71 18 111/58 (75) 97 Room Air 08/15/22 09:45 76 18 96 Room Air 08/15/22 09:30 83 18 117/56 (76) 97 Room Air 08/15/22 09:15 78 18 110/57 (74) 97 Room Air 08/15/22 09:00 67 18 121/60 (80) 96 Room Air 08/15/22 08:45 82 18 105/55 (72) 96 Room Air 08/15/22 08:30 66 18 116/60 (78) 96 Room Air 08/15/22 08:15 74 18 113/57 (75) 96 Room Air 08/15/22 08:00 67 18 118/61 (80) 96 Room Air 08/15/22 07:45 79 18 113/55 (74) 96 Room Air 08/15/22 07:30 36.6 82 18 110/56 (74) 96 Room Air 08/15/22 07:15 74 18 110/56 (74) 97 Room Air 08/15/22 07:00 74 118/56 (76) 96 Room Air 08/15/22 06:45 74 116/59 (78) 96 Room Air 08/15/22 06:30 76 116/60 (78) 97 Room Air 08/15/22 06:15 76 112/60 (77) 96 Room Air 08/15/22 06:00 86 118/65 (82) 97 Room Air 08/15/22 05:45 78 113/58 (76) 97 Room Air 08/15/22 05:30 74 110/57 (74) 96 Room Air 08/15/22 05:15 36.7 67 108/53 (71) 96 Room Air 08/15/22 05:00 67 121/56 (77) 96 Room Air 08/15/22 04:45 74 117/62 (80) 97 Room Air 08/15/22 04:30 81 122/59 (80) 96 Room Air 08/15/22 04:15 72 123/59 (80) 96 Room Air 08/15/22 04:00 75 125/57 (79) 96 Room Air 08/15/22 03:45 76 118/56 (76) 96 Room Air 08/15/22 03:30 72 114/55 (74) 96 Room Air 08/15/22 03:15 72 118/56 (76) 96 Room Air 08/15/22 03:00 Room Air 08/15/22 02:56 96 133/58 (83) 97 Room Air 08/15/22 02:50 84 130/59 (82) 97 Room Air 08/15/22 02:44 82 135/74 (94) 98 Room Air 08/15/22 02:41 81 132/70 (90) 98 Room Air 08/15/22 02:38 81 139/73 (95) 98 Room Air 08/15/22 02:35 84 139/75 (96) 98 Room Air 08/15/22 02:32 87 139/75 (96) 99 Room Air 08/15/22 02:30 93 133/76 (95) 99 Room Air 08/15/22 02:27 86 129/65 (86) 99 Room Air 08/15/22 01:00 37.1 91 18 99 Room Air I & O 08/15/22 07:00 Intake Total 1000 ml Balance 1000 ml Labs Laboratory Tests 08/15/22 00:45: Urine Color YELLOW, Urine Clarity SL CLOUDY, Urine pH 7.0, Urine Specific [place] 1.015L, Urine Protein NEGATIVE, Urine Glucose (UA) NEGATIVE, Urine Ketones TRACEH, Urine Nitrite NEGATIVE, Urine Bilirubin NEGATIVE, Urine Urobilinogen 0.2, Urine Leukocyte Esterase NEGATIVE, Urine RBC (Auto) NEGATIVE, Urine RBC NONE, Urine WBC RARE, Urine Squamous Epithelial Cells RARE, Urine Meera tals PRESENTH, Urine Calcium Oxalate Crystals MODERATEH, Urine Amorphous Sediment MOD MICHELA PHOSPHATEH, Urine Bacteria FEWH, Urine Casts NONE, Urine Mucus NEGATIVE, Urine Culture Indicated NO 08/15/22 01:05: White Blood Count 15.3H, Red Blood Count 4.55, Hemoglobin 11.5, Hematocrit 35, Mean Corpuscular Volume 78L, Mean Corpuscular Hemoglobin 25, Mean Corpuscular Hemoglobin Concent 33, Red Cell Distribution Width 13.4, Platelet Count 210, Mean Platelet Volume 12.3H, Immature Granulocyte % (Auto) 1, Neutrophils (%) (Auto) 79H, Lymphocytes (%) (Auto) 14, Monocytes (%) (Auto) 6, Eosinophils (%) (Auto) 0, Basophils (%) (Auto) 0, Neutrophils # (Auto) 12.1H, Lymphocytes # (Auto) 2.1, Monocytes # (Auto) 0.9, Eosinophils # (Auto) 0.1, Basophils # (Auto) 0.0, Immature Granulocyte # (Auto) 0.1, Syphilis Total Antibody Negative LIAM BROWN MD August 15, 2022 15:43
[2022-08-15] MEDS ORDERED: TRANEXAMIC ACID INJECTION 1,000 MG in NS (IVPB) 50 ML IV ONE (16:00)
[2022-08-15 16:49] LABS: HEMATOCRIT 34 % (35-52); HEMOGLOBIN 10.8 g/dL (11.5-16.0); MEAN CORPUSCULAR HEMOGLOBIN 26 pg (25-34); MEAN CORPUSCULAR HGB CONC 32 g/dL (32-36); MEAN CORPUSCULAR VOLUME 80 fL (80-99); MEAN PLATELET VOLUME 12.4 fL (9.0-12.2); PLATELET COUNT 189 10^3/uL (130-400); WHITE BLOOD COUNT 25.8 10^3/uL (4.3-11.0)
[2022-08-15] MEDS ORDERED: WITCH HAZEL(TUCKS) 40 EA JAR ONE (16:49)
[2022-08-15] MEDS ORDERED: BENZOCAINE/MENTHOL (DERMOPLAST) 56 ML CAN TP ONE (16:49)
[2022-08-15] MEDS: WITCH HAZEL(TUCKS) 40 EA JAR TOP PRN (16:55)
[2022-08-15 17:01] LABS: INR 0.9 (0.8-1.4); PROTHROMBIN TIME PATIENT 12.4 SEC (12.2-14.7)
[2022-08-15] MEDS ORDERED: TETANUS,DIPTH,PERTUSS P/F (BOOSTRIX) 0.5 ML VIAL IM ONE (17:15)
[2022-08-15] MEDS ORDERED: PROMETHAZINE 25 MG (PHENERGAN) TAB PO PRN (17:15)
[2022-08-15] MEDS ORDERED: IBUPROFEN 600 MG (MOTRIN) TAB PO SCH (17:15)
[2022-08-15] MEDS ORDERED: BENZOCAINE/MENTHOL (DERMOPLAST) 56 ML CAN TP PRN (17:15)
[2022-08-15] MEDS ORDERED: fentaNYL INJ 100 MCG/2 ML AMP IVP NR (17:30)
[2022-08-15] MEDS ORDERED: fentaNYL INJ 100 MCG/2 ML AMP ONE (17:32)
[2022-08-15] MEDS ORDERED: PROMETHAZINE INJ 25 MG/ML (PHENERGAN) AMP IVP PRN (17:45)
[2022-08-15] MEDS ORDERED: HYDROcodone/APAP 5 MG/325 MG (LORTAB) TAB PO PRN (18:00)
[2022-08-15] MEDS: DOCUSATE SODIUM 100 MG (COLACE) CAP PO SCH (23:45)
[2022-08-15] MEDS: IBUPROFEN 600 MG (MOTRIN) TAB PO SCH (23:54)
[2022-08-16 04:15] VITALS: BP 111/55
[2022-08-16 06:02] LABS: BASOPHILS % (AUTO) 0 % (0-10); EOSINOPHILS # (AUTO) 0.1 10^3/uL (0.0-0.3); EOSINOPHILS % (AUTO) 1 % (0-10); HEMATOCRIT 25 % (35-52); HEMOGLOBIN 7.9 g/dL (11.5-16.0); LYMPHOCYTES # (AUTO) 2.4 10^3/uL (1.0-4.0); LYMPHOCYTES % (AUTO) 13 % (12-44); MEAN CORPUSCULAR HEMOGLOBIN 25 pg (25-34); MEAN CORPUSCULAR HGB CONC 32 g/dL (32-36); MEAN CORPUSCULAR VOLUME 79 fL (80-99); MEAN PLATELET VOLUME 12.3 fL (9.0-12.2); MONOCYTES # (AUTO) 1.2 10^3/uL (0.0-1.0); MONOCYTES % (AUTO) 7 % (0-12); NEUTROPHILS % (AUTO) 79 % (42-75); PLATELET COUNT 150 10^3/uL (130-400); WHITE BLOOD COUNT 17.8 10^3/uL (4.3-11.0)
[2022-08-16] MEDS: IBUPROFEN 600 MG (MOTRIN) TAB PO SCH ×4 (06:39→18:00)
--- NOTE | 2022-08-16 07:52 | Progress Note ---
Subjective Subjective/Events-last exam patient resting in bed this morning. She does report feeling tired. Overall no dizziness except when quickly standing up but it does go away. Objective Exam Last Set of Vital Signs Vital Signs Date Time Temp Pulse Resp B/P (MAP) Pulse Ox O2 Delivery O2 Flow Rate FiO2 08/16/22 04:15 36.6 67 18 111/55 (73) 97 Room Air Capillary Refill : Less Than 3 Seconds I&O Intake and Output 08/16/22 00:00 Intake Total 3260 ml Output Total 1800 ml Balance 1460 ml Intake IV Total 3260 ml Output Urine Total 1800 ml Blood Loss Quantification Method 750 ml Daily Weight Change No General: Alert, Oriented X3 Abdomen: Soft (With uterus firm) Results/Procedures Lab Laboratory Tests 08/15/22 16:33: White Blood Count 25.8H, Red Blood Count 4.23, Hemoglobin 10.8L, Hematocrit 34L, Mean Corpuscular Volume 80, Mean Corpuscular Hemoglobin 26, Mean Corpuscular Hemoglobin Concent 32, Red Cell Distribution Width 13.7, Platelet Count 189, Mean Platelet Volume 12.4H, Prothrombin Time 12.4, INR Comment 0.9, Activated Partial Thromboplast Time 27, Fibrinogen 429 08/16/22 05:40: White Blood Count 17.8H, Red Blood Count 3.16L, Hemoglobin 7.9#L, Hematocrit 25L , Mean Corpuscular Volume 79L, Mean Corpuscular Hemoglobin 25, Mean Corpuscular Hemoglobin Concent 32, Red Cell Distribution Width 13.9, Platelet Count 150, Mean Platelet Volume 12.3H, Immature Granulocyte % (Auto) 1, Neutrophils (%) (Auto) 79H, Lymphocytes (%) (Auto) 13, Monocytes (%) (Auto) 7, Eosinophils (%) (Auto) 1, Basophils (%) (Auto) 0, Neutrophils # (Auto) 14.0H, Lymphocytes # (Auto) 2.4, Monocytes # (Auto) 1.2H, Eosinophils # (Auto) 0.1, Basophils # (Auto) 0.0, Immature Granulocyte # (Auto) 0.1 Assessment/Plan Assessment/Plan Admission Dx 1. Intrauterine at 37 weeks 4 days gestation Admission Status: Inpatient Order (span 2 midnights) Reason for Inpatient Admission: Labor and delivery per Dr. Ndiaye Assessment & Plan 1. Intrauterine at 37 weeks 4 days gestationnow delivered -She is day 1 2. anemia following blood loss from vaginal wall laceration -at this point no blood transfusion. Considering Venofer if she remains symptomatic throughout the day -We will provide oral iron NEAL ARIAS MD August 16, 2022 07:51
[2022-08-16] MEDS ORDERED: FERROUS SULF 325 MG (IRON) TAB PO SCH (09:00)
[2022-08-16 09:30] VITALS: BP 131/58
[2022-08-16] MEDS: DOCUSATE SODIUM 100 MG (COLACE) CAP PO SCH ×2 (09:35→22:01)
[2022-08-16] MEDS: FERROUS SULF 325 MG (IRON) TAB PO SCH (09:36)
[2022-08-16] MEDS: PRENATAL VITAMIN 1 EA TAB PO SCH (09:37)
[2022-08-16] MEDS: WITCH HAZEL(TUCKS) 40 EA JAR TOP PRN (10:00)
[2022-08-16] MEDS: ACETAMINOPHEN 500 MG TAB (TYLENOL) PO PRN (10:18)
--- NOTE | 2022-08-16 10:28 | Anesthesia-Regional Post-Op ---
Regional Patient Condition Mental Status: Alert, Oriented x3 Circulation: Same as Pre-Op Headache: Absent Sensation: Full Recovery Motor Block: Absent Post Op Complications Complications None Follow Up Care/Instructions Patient Instructions None needed. Anesthesia/Patient Condition Patient is doing well, no complaints, stable vital signs, no apparent adverse anesthesia problems. No complications reported per nursing. JUDITH COLÓN CRNA August 16, 2022 10:28
[2022-08-16 12:18] VITALS: BP 118/75
[2022-08-16] MEDS ORDERED: TRANEXAMIC ACID 100 MG/ML 10 ML INJECTION IV ONE (14:18)
[2022-08-16 18:17] VITALS: BP 111/55
[2022-08-17 00:53] VITALS: BP 98/52
[2022-08-17] MEDS: IBUPROFEN 600 MG (MOTRIN) TAB PO SCH ×2 (00:53→08:04)
[2022-08-17 08:00] VITALS: BP 112/58
--- NOTE | 2022-08-17 08:02 | Discharge Summary ---
Diagnosis/Chief Complaint Date of Admission August 15, 2022 at 00:48 Date of Discharge August 17, 2022 Admission Diagnosis Admission Diagnosis 1. Intrauterine at 37 weeks 4 days gestation Discharge Diagnosis 1. Intrauterine at 37 weeks 4 days gestation 2. Anemia blood loss after delivery Chief Complaint/HPI Chief Complaint/HPI 21-year-old 1 now term 1 L1 who initially presented to labor and delivery in labor at 37 weeks 4 days gestation. She had no complications during her care. She presented in the labor Discharge Summary-OBS Procedures 1. Epidural per anesthesia 2. Suction-assisted vertex vaginal delivery 3. Repair of bilateral vaginal wall lacerations Discharge Physical Examination Allergies: Coded Allergies: No Known Drug Allergies (Verified , 08/14/08) Vitals & I&Os Vital Sign - Last 12Hours Date Time Temp Pulse Resp B/P (MAP) Pulse Ox O2 Delivery O2 Flow Rate FiO2 08/17/22 00:53 36.1 69 18 98/52 (67) 98 Room Air General Appearance: Alert, Oriented X3, No Acute Distress Respiratory: Clear to Auscultation Cardiovascular: Regular Rate Abdominal: Soft (With uterus firm) Hospital Course Was the Problem List Reviewed?: Yes following admission she underwent antepartum care orders. Ultimately she went on to deliver a term viable male with suction assistance. She did have vaginal repair and noted a proximally 750 cc of blood loss. She was hemodynamically stable. See labor and delivery note for full details. Following delivery she underwent routine care orders. She had complained of slight dizziness in the morning but this did resolve throughout the day of August 16, 2022. She was placed on iron sulfate 325 mg twice daily. Hemoglobin in the morning of August 16 was noted to be 7.9 compared to admission of 11.5. In the morning of she felt much better. She was without dizziness and eager for dismissal. Discharge Instructions to patient/family Please see electronic discharge instructions given to patient. Discharge Medications Reviewed and agree with Discharge Medication list on patient's Discharge Instruction sheet NEAL ARIAS MD Aug 17, 2022 08:02
[2022-08-17] MEDS: DOCUSATE SODIUM 100 MG (COLACE) CAP PO SCH (08:03)
[2022-08-17] MEDS: PRENATAL VITAMIN 1 EA TAB PO SCH (08:03)
[2022-08-17] MEDS: FERROUS SULF 325 MG (IRON) TAB PO SCH (08:04)
[2022-08-17] MEDS: ACETAMINOPHEN 500 MG TAB (TYLENOL) PO PRN (08:04)
[2022-08-17] MEDS ORDERED: IBUP-844 PO (08:07)
[2022-08-17] MEDS ORDERED: DOCU100C37 PO (08:07)
[2022-08-17] MEDS ORDERED: FERR325T24 PO (08:07)
--- NOTE | 2022-08-17 08:08 | Discharge Inst-Women's Service ---
Discharge Inst-Women's Serv Depart Medication/Instructions New, Converted or Re-Newed RX: Transmitted to Pharmacy ([facility]) Problems Reviewed?: Yes Consults/Follow Up Additional Follow Up: Yes (Dr. Tee in 6 weeks) Activity Driving Instructions: No Driving for 1 Week Nothing Inside Vagina: No [place] (For 6 weeks) Diet Discharge Diet: Regular Diet Return to The Hospital For: As below Symptoms to Report to : Bleeding Excessive, Pain Increased, Constipation(Persistant), Fever Over 101 Degrees F, Vaginal Discharge Foul For Any Problems or Questions: Contact Your Physician NEAL ARIAS MD Aug 17, 2022 08:08
--- NOTE | 2022-08-21 00:48 | Physician Query Clarification ---
PQ-Further Specificity Admission/Discharge Admission Date: August 15, 2022 at 00:48 Discharge Date: Aug 17, 2022 at 12:50 The medical record reflects the following clinical scenario: History/Risk Factors: 21 y/o female admitted intra uterine with 37 weeks of gestation delivered via spontaneously and anemia blood loss was documented in medical record. Clinical Findings: vaginal wall laceration, hgb drops from 11.5 to 7.9, hct drops from 35 to 25. Treatment: Ferrous sulphate. Question: Can you further specify anemia per the clinical indicators above? Please document a response in the Progress Notes or Discharge Summary. 1. Acute blood loss anemia 2. Chronic blood loss anemia 3. Other, with explanation of the clinical findings. 4. Clinically undetermined, no explanation for the clinical findings. PHYSICIAN RESPONSE Can you specify per above: 1 Explanation/Clinical Findings acute blood loss as it was described in the procedure note by Dr. Tee 700 cc In responding to this query, please exercise your independent professional judgment. The purpose of this communication is to more accurately reflect the complexity of your patients condition. The fact that a question is asked does not imply that any particular answer is desired or expected. Thank you for your timely response to this clarification. Requestors name: [ ] Phone # [ ] THIS PHYSICIAN QUERY FORM IS A PERMANENT PART OF THE MEDICAL RECORD EFREN FELDMAN Aug 21, 2022 00:48 NEAL ARIAS MD Aug 23, 2022 21:35
== END 2022-08-17 12:50 | disposition home or self-care (01) | DRG 806 ==
LOC: WSo 00:24 → LDRP 00:25 → WSo 00:48 → LDRP 18:00
PROVIDERS: ADMIT Family Medicine; ATTEND Family Medicine
PROC: 10D07Z6 Extraction of Products of Conception, Vacuum, Via Natural or Artificial Opening (ICD-10-PCS; principal; 2022-08-15)
PROC: 0KQM0ZZ Repair Perineum Muscle, Open Approach (ICD-10-PCS; 2022-08-15)
DX: O98.32 Other infections with a predominantly sexual mode of transmission complicating childbirth (principal); D62 Acute posthemorrhagic anemia; Z37.0 Single live birth; O71.4 Obstetric high vaginal laceration alone; Z3A.37 37 weeks gestation of pregnancy; O90.81 Anemia of the puerperium; A60.00 Herpesviral infection of urogenital system, unspecified
CPT/HCPCS: 36415; 81000; 85025; 85027; 85384; 85610; 85730; 86780; 86850; 86900; 86901; 99212

== ENCOUNTER 2023-02-27 20:46 | Emergency (ER) | payer OTHER ==
[~2023-02-27] VITALS: Ht 157 cm; Wt 70.0 kg
[~2023-02-27 20:46] MED LIST changes: +DOCU100C37 PO; +FERR325T24 PO; +IBUP-844 PO
[2023-02-27 20:54] VITALS: BP 130/72
[2023-02-27] MEDS ORDERED: PARO10TA3 (20:59)
[2023-02-27] MEDS ORDERED: KETOROLAC INJ 15 MG/ML VIAL IM ONE (21:00)
[2023-02-27] MEDS ORDERED: AMOX500C2 PO (21:10)
[2023-02-27] MEDS ORDERED: IBUP-1780 PO (21:10)
--- NOTE | 2023-02-27 21:11 | ED EENT ---
History of Present Illness General Chief Complaint: Dental Problems/Pain Stated Complaint: TOOTHACHE, BLURRY VISION Nursing Triage Note: RIGHT LOWER DENTAL PAIN X1 DAY. WORSE TONIGHT. Source: patient Exam Limitations: no limitations History of Present Illness Date Seen by Provider: Feb 27, 2023 Time Seen by Provider: 20:49 Initial Comments 22-year-old female with no pertinent past medical history coming in due to dental pain. This started earlier today, this has been recurrent as that occurred last month and she was on amoxicillin at that time. She had a dose left over, took it tonight roughly 2 hours prior to arrival. She is also had Tylenol and ibuprofen at different times today. She denies any fever, significant swelling, voice changes, difficulty swallowing, or any other concerns. Her dentist is Dr. Hernandez, she has not called him yet. LMP was last month. She is not breast-feeding. Allergies and Home Medications Allergies Coded Allergies: No Known Drug Allergies (Verified , 08/14/08) Patient Home Medication List Home Medication List Reviewed: Yes Paroxetine HCl (Paroxetine HCl) 10 Mg Tablet, (Reported) Entered as Reported by: RENETTA VICTOR on 02/27/232058 Last Action: New Order Discontinued Medications Docusate Sodium (Docusate Sodium) 100 Mg Capsule, 100 MG PO BID Discontinued Reason: No Longer Taking Prescribed by: NELA ARIAS on 08/17/22806 Last Action: Discontinued Ferrous Sulfate (Ferosul) 325 Mg (65 Mg Iron) Tablet, 325 MG PO BID WITH MEALS Discontinued Reason: No Longer Taking Prescribed by: NEAL ARIAS on 08/17/22806 Last Action: Discontinued Ibuprofen (Ibu) 600 Mg Tablet, 600 MG PO Q6H Discontinued Reason: No Longer Taking Prescribed by: NEAL ARIAS on 08/17/22806 Last Action: Discontinued Review of Systems Review of Systems Constitutional: No fever Eyes: No Symptoms Reported Ears: No Symptoms Reported Nose: no symptoms reported Mouth: see HPI Throat: no symptoms reported Respiratory: no symptoms reported Cardiovascular: no symptoms reported Past Fbphznq-Uqskla-Upvzlq Hx Patient Social History Tobacco Use?: No Substance use?: No Alcohol Use?: No Pt feels they are or have been: No Immunizations Up To Date Tetanus Booster (TDap): Less than 5yrs First/Initial COVID19 Vaccinat: 05/20/2020 Second COVID19 Vaccination Oswald: 06/24/2020 Third COVID19 Vaccination Date: 05/20/2020 Past Medical History Surgery/Hospitalization HX: ASTHMA HX, LAP NOE Surgeries: No Respiratory: Yes Asthma Cardiac: Yes (HAD HOLE IN HEART AT DID NOT REQUIRE SURG) Neurological: Yes (MINIMAL PALSY) Last Menstrual Period: Jan 28, 2023 Sexually Transmitted Disease: No Gastrointestinal: No Musculoskeletal: No Endocrine: No Cancer: No Psychosocial: No Integumentary: No Blood Disorders: No Physical Exam Vital Signs Vital Signs - First Documented 02/27/23 20:54 Temp 36.6 Pulse 84 Resp 16 B/P (MAP) 130/72 (91) Pulse Ox 100 O2 Delivery Room Air Height, Weight, BMI Height: 5'2" Weight: 116lbs. oz. 52.846473ms; 28.00 BMI Method:Stated General Appearance: WD/WN, no apparent distress Nose: normal inspection Mouth/Throat: other (Multiple dental caries, right-sided upper and lower molar tenderness, no abscess, no trismus, normal voice, tolerating secretions) Neck: non-tender, full range of motion, supple, normal inspection Cardiovascular: regular rate, rhythm, no edema, no murmur Respiratory: chest non-tender, lungs clear, normal breath sounds, no respiratory distress, no accessory muscle use Neurologic/Psychiatric: no motor/sensory deficits, alert, normal mood/affect Skin: normal color, warm/dry Progress/Results/Core Measures Results/Orders My Orders Orders - MOR SONG MD Ketorolac Injection (Ketorolac Injection (02/27/23 21:00) Tramadol Tablet (Ultram Tablet) (02/27/23 21:00) Vital Signs/I&O 02/27/23 20:54 Temp 36.6 Pulse 84 Resp 16 B/P (MAP) 130/72 (91) Pulse Ox 100 O2 Delivery Room Air Blood Pressure Mean: 91 Progress Progress Note : Progress Note 22-year-old female with above history coming in due to dental tenderness. ABCs were intact and vitals are stable on presentation. She has multiple dental caries that are tender, no red flags on exam or history. She took amoxicillin already today. We will give her IM Toradol and oral tramadol. Will send a prescription for antibiotics as well as for NSAIDs. I believe she is otherwise stable for discharge with outpatient follow-up with dental follow-up. She was sent home with strict return precautions. Departure Impression Primary Impression: Pain, dental Disposition: HOME, SELF-CARE Condition: Stable Departure-Patient Inst. Decision time for Depature: 21:20 Referrals: LIAM BROWN MD (PCP/Family) Primary Care Physician Patient Instructions: Dental Pain (DC) Add. Discharge Instructions: Please call Dr. Hernandez in the morning to get an appointment for some of these teeth to be removed. Finish the entire dose of the antibiotics. Prescription strength ibuprofen was also sent to your pharmacy. Scripts Ibuprofen (Ibuprofen) 800 Mg Tablet 800 MG PO Q8H PRN for PAIN for 7 Days, #21 TAB 0 Refills Prov: MOR SONG MD 02/27/23 Amoxicillin (Amoxicillin) 500 Mg Capsule 500 MG PO TID for 7 Days, #21 CAP 0 Refills Prov: MOR SONG MD 02/27/23 Work/School Note: Work Release Form Date Seen in the Emergency Department: Feb 27, 2023 Return to Work: Feb 28, 2023 Restrictions: No Restrictions MOR SONG MD Feb 27, 2023 21:11
== END 2023-02-27 21:20 | disposition home or self-care (01) ==
LOC: EDUNIT# 20:46 → ER 20:49
DX: K02.9 Dental caries, unspecified (principal)
CPT/HCPCS: 99284